=== PATIENT | female | born 1950 | race Caucasian/White ===

== ENCOUNTER 2025-08-06 19:50 | Inpatient (IN) | payer MEDICARE, MEDICAID, SELFPAY ==
--- NOTE | 2025-08-06 19:51 | EDNOTE_ITS ---
Nausea/Vomit./Diarrhea-RME/HPI General Chief complaint: Abdominal Pain Stated complaint: WEAKNESS Arrival date/time: 08/06/25 19:50 RME / HPI RME / HPI Narrative: See [facility] for Dr. Rosario's HPI documentation. Related Data Home Medications ?Medication ?Instructions ?Recorded ?Confirmed No Known Home Medications 04/02/2007/24 Allergies Allergy/AdvReac Type Severity Reaction Status Date / Time No Known Allergies Allergy Verified 04/02/20 23:23 Review of Systems Review of Systems Systems Reviewed: All systems reviewed, normal except as documented Past Medical History Past Medical History CARDIAC: Negative Cardiac Disorders or Congestive Heart Failure RESPIRATORY: Negative Chronic Obstructive Pulmonary Disease (COPD) or Asthma GENITOURINARY: Negative Renal Disease ENDOCRINE: Negative Diabetes Mellitus Type 1 or Diabetes Mellitus Type 2 HEMATOLOGIC: Negative Sickle Cell Disease ED Exam Narrative Physical exam: See [facility] for Dr. Rosario's physical exam documentation. Course Quality Measures none Orders Category Date Time Status Bedside COVID-19 Antigen Test NOW Care 08/06/25 19:56 Active COVID-19 Screening Questionnaire NOW Care 08/06/25 21:50 Active Decision to Admit X1 Care 08/06/25 21:50 Completed EKG (ED ONLY) *Do not use* NOW Care 08/06/25 19:57 Completed Miscellaneous Nursing Order NOW Care 08/06/25 23:23 Active Saline [Insert IV] NOW Care 08/06/25 19:56 Active Straight [In and Out Catheter] X1 Care 08/06/25 19:56 Active EKG (ED Only) Stat Exams 08/06/25 19:57 Draft XR chest 1V portable Stat Exams 08/06/25 19:57 Completed ABG [Arterial Blood Gas] Stat Lab 08/06/25 21:01 Completed Alcohol, Blood Medical Stat Lab 08/06/25 20:28 Completed Ammonia Stat Lab 08/06/25 20:28 Completed Amylase Stat Lab 08/06/25 20:28 Completed BNP [B-Type Natriuretic Peptide] Stat Lab 08/06/25 20:28 Completed Beta Hydroxybutyrate Stat Lab 08/06/25 20:28 Completed Bilirubin,Direct Stat Lab 08/06/25 20:28 Completed Blood Culture (Lab) Stat Lab 08/06/25 20:28 Received CBC Stat Lab 08/06/25 20:28 Completed CMP [Comprehensive Metabolic Panel] Stat Lab 08/06/25 20:28 Completed CRP [C-Reactive Protein] Stat Lab 08/06/25 20:28 Completed Drug Screen,Urine Stat Lab 08/06/25 20:18 Completed ESR [Sed Rate (ESR)] Stat Lab 08/06/25 20:28 Completed Hemoglobin A1C [Glycohemoglobin w (eAG)] Stat Lab 08/06/25 20:28 Completed Influenza A & B Rapid Panel Stat Lab 08/06/25 19:56 Ordered Lactate (Lactic Acid) Stat Lab 08/06/25 20:28 Completed Lipase Stat Lab 08/06/25 20:28 Completed Magnesium Stat Lab 08/06/25 20:28 Completed Procalcitonin Stat Lab 08/06/25 20:28 Completed TSH [Thyroid Stimulating Hormone] Stat Lab 08/06/25 20:28 Completed Troponin I Stat Lab 08/06/25 20:28 Completed UA, C/S IF [Urinalysis, C/S if Indicated] Stat Lab 08/06/25 20:18 Completed Urine Culture Stat Lab 08/06/25 20:18 Received Insulin Regular Med 08/06/25 19:56 Discontinued 10 unit IV X1 ONE Ondansetron Inj [Zofran Inj] Med 08/06/25 19:56 Discontinued 4 mg IVP X1 ONE Ringers Lactated 1000 ml [Lactated Ringers] 1,000 ml Med 08/06/25 21:46 Discontinued IV 1,000 mls/hr Sodium Chloride 0.9% 1000 ml [Ns] 1,000 ml Med 08/06/25 19:56 Discontinued IV 999 mls/hr cefTRIAXone/D5w 1gm IV premix [Rocephin/D5w 1gm IV Med 08/07/25 21:00 Active premix] 1 gm in 50 ml IV QDAY cefTRIAXone/D5w 1gm IV premix [Rocephin/D5w 1gm IV Med 08/06/25 21:02 Discontinued premix] 1 gm in 50 ml IV X1 Vital Signs Vital signs: Vital Signs Temperature 98.9 F 08/06/25 20:00 Pulse Rate 100 08/06/25 20:00 Respiratory Rate 18 08/06/25 20:00 Blood Pressure 189/104 H 08/06/25 20:00 Pulse Oximetry (%) 98 08/06/25 20:00 Oxygen Delivery Method Room Air 08/06/25 20:00 Nausea/Vomiting/Diarrhea MDM Narrative MDM Narrative:: This section includes all my notes and documentations, including HPI, PE, and ED course. Teto Rosario MD HPI: 75-year-old female here reporting several days of fatigue and malaise and vomiting and anorexia. Reports she doesn't have diabetes or other medical problems. No current medications. No other complaints. ROS: All negative except as documented in HPI. Physical Exam: General:? Alert and oriented.? Eyes:? Conjunctivae and lids clear.? EOMI.? PERRL. ENT:? No nasal congestion. Neck:? Supple.? Heart:? RRR.? Lungs:? No respiratory distress.? Decreased air movement.? No severe rhonchi, wheezing, rales.?? Abdomen:? Soft and nontender.? Normal bowel sounds.? No distension.? No rebound or guarding.?? Back:? No CVA tenderness.?? Legs:? No clubbing, cyanosis, edema.? Skin:? Warm and dry.?? Neuro:? Alert and oriented X 3.? Cranial Nerves II-XII grossly intact.? No peripheral motor deficits. I reviewed EMS notes. I reviewed all diagnostic test results. My interpretation of the EKG is sinus rhythm with no ST-T changes. My interpretation of the chest x-ray is NAD. Blood tests are remarkable for WBC 18.7, ESR 63, Creatinine 1.4, Glucose 623, Lactic Acid 2.7, CRP 11.6, Beta Hydroxybutyrate 2.8, Procalcitonin 1.59. ABG showed pH 7.38, pCO2 35, pHCO3 20. UA remarkable for 4+ glucose, 1+ ketone, positive nitrite, positive leukocyte esterase, 9 RBC, 28 WBC, and 2+ bacteria. UDS negative. At this point, diagnoses include: Hyperosmolar hyperglycemic state (HHS) UTI Treatment here included: Insulin 10 units IV Zofran 4 mg IV IV fluid Rocephin 1 g IV No significant improvement noted. I discussed the case with our hospitalist. About the presentation and exam and diagnostics and treatments here. And need of further care in the hospital. Will accept the patient. Teto Rosario MD Patient data External records reviewed:: [facility] previous records (Per chart review, patient was seen here on 04/03/20 for Diabetic ketoacidosis, Sepsis due to pneumonia, New onset type 2 diabetes mellitus, Empyema of lung and was transferred to [facility].) and EMS form Clinical information provided by:: patient and EMS Social determinants that could affect healthcare access:: none Patient has the following chronic illnesses:: DM How is presenting disease/condition affected by chronic disease/condition?: caused by Evaluation data The following diagnostics were reviewed and interpreted by me:: lab results, radiology exam(s) and EKG tracing(s) (My interpretation of the EKG: NSR (96 bpm) with no ST-T changes. Teto Rosario MD) Lab and/or radiology exams considered but not ordered:: none Interpretation Summary: I reviewed all diagnostic test results. My interpretation of the EKG is sinus rhythm with no ST-T changes. My interpretation of the chest x-ray is NAD. Blood tests are remarkable for WBC 18.7, ESR 63, Creatinine 1.4, Glucose 623, Lactic Acid 2.7, CRP 11.6, Beta Hydroxybutyrate 2.8, Procalcitonin 1.59. ABG showed pH 7.38, pCO2 35, pHCO3 20. UA remarkable for 4+ glucose, 1+ ketone, positive nitrite, positive leukocyte esterase, 9 RBC, 28 WBC, and 2+ bacteria. UDS negative. Medications / Prescriptions Medications / Prescriptions considered but not ordered:: none Medication administrations:: Medication Administration History Acetaminophen (Acetaminophen 325 Mg Tablet) 650 mg PO Q6H PRN PRN Reason: Fever >100.4 Stop: 09/05/25 23:23 Acetaminophen (Acetaminophen 325 Mg Tablet) 650 mg PO Q6H PRN PRN Reason: PAIN SCALE 1-3 (mild Stop: 09/05/25 23:23 Dextrose (Dextrose 50%-Water Inj 50 Ml Syringe) 25 ml IV Q15MIN PRN PRN Reason: BG 50-70 responsive npo pt Stop: 09/05/25 23:23 Dextrose (Dextrose 50%-Water Inj 50 Ml Syringe) 50 ml IV Q15MIN PRN PRN Reason: BG <50 OR BG <70 & pt unresponsive Stop: 09/05/25 23:23 Enoxaparin Sodium (Enoxaparin Sod Inj 40 Mg/0.4 Ml Syringe) 40 mg SC QDAY GEREMIAS Stop: 08/21/25 08:59 Glucagon (Glucagon Inj 1 Mg Vial) 1 mg IM Q15MIN PRN PRN Reason: BG <70, and no IV access Ceftriaxone Sodium/Dextrose (Rocephin/D5w 1gm Iv Premix) 1 gm in 50 mls @ 100 mls/hr IV QDAY GEREMIAS Stop: 08/14/25 20:59 Lactated Ringer's (Lactated Ringers) 1,000 mls @ 999 mls/hr IV .Q1H1M ONE Stop: 08/07/25 04:33 Insulin Human Lispro (Insulin Lispro (Admelog) 1 Unit/0.01 Ml Unit) 0 unit SC Q6H GEREMIAS; Protocol Stop: 09/05/25 23:44 Last Admin: 08/07/25 01:21 Dose: Not Given Documented By: JOHN Non-Admin Reason: help per provider Comments: new x1 med ordered Ondansetron HCl (Ondansetron Inj 2 Mg/Ml Inj 2 Ml) 4 mg IVP Q6H PRN; Protocol PRN Reason: NAUSEA OR VOMITING Stop: 09/05/25 23:23 Sennosides (Senna Tablet) 1 tab PO QDAY PRN; Protocol PRN Reason: constipation Stop: 09/05/25 23:23 Discontinued Medications Sodium Chloride (Ns) 1,000 mls @ 999 mls/hr IV .Q1H1M ONE Stop: 08/06/25 20:56 Last Infusion: 08/06/25 22:00 Dose: Infused Documented By: Admin: 08/06/25 20:44 Dose: 999 mls/hr Documented By: MÓNICA Ceftriaxone Sodium/Dextrose (Rocephin/D5w 1gm Iv Premix) 1 gm in 50 mls @ 100 mls/hr IV X1 ONE Stop: 08/06/25 21:31 Last Infusion: 08/06/25 22:45 Dose: Infused Documented By: Admin: 08/06/25 22:03 Dose: 100 mls/hr Documented By: MÓNICA Lactated Ringer's (Lactated Ringers) 1,000 mls @ 1,000 mls/hr IV .Q1H ONE Stop: 08/06/25 22:45 Last Admin: 08/06/25 22:21 Dose: 1,000 mls/hr Documented By: MÓNICA Lactated Ringer's (Lactated Ringers) 1,000 mls @ 999 mls/hr IV .Q1H1M ONE Stop: 08/07/25 00:35 Last Admin: 08/07/25 01:05 Dose: 999 mls/hr Documented By: JOHN Lactated Ringer's (Lactated Ringers) 1,000 mls @ 999 mls/hr IV .Q1H1M ONE Stop: 08/07/25 00:35 Last Admin: 08/07/25 01:06 Dose: 999 mls/hr Documented By: JOHN Potassium Chloride (Kcl Ivpb) 10 meq in 100 mls @ 100 mls/hr IV Q1H GEREMIAS Stop: 08/07/25 02:01 Last Admin: 08/07/25 02:21 Dose: 100 mls/hr Documented By: Infusion: 08/07/25 02:06 Dose: Infused Documented By: Admin: 08/07/25 01:06 Dose: 100 mls/hr Documented By: JOHN Insulin Degludec (Insulin Degludec 5 Unit/0.05 Ml (Per 5 Units)) 20 unit SC X1 ONE Stop: 08/07/25 00:09 Last Admin: 08/07/25 01:05 Dose: 20 unit Documented By: JOHN Co-signed By: KEIRY Insulin Human Lispro (Insulin Lispro (Admelog) 1 Unit/0.01 Ml Unit) 0 unit SC ACHS GEREMIAS; Protocol Stop: 09/06/25 07:29 Insulin Human Lispro (Insulin Lispro (Admelog) 1 Unit/0.01 Ml Unit) 0 unit SC Q6H GEREMIAS; Protocol Stop: 09/05/25 23:44 Last Admin: 08/07/25 02:32 Dose: Not Given Documented By: JOHN Non-Admin Reason: Discontinued Insulin Human Regular (Insulin Hum Regular 1 Unit/0.01 Ml (Per Unit)) 10 unit IV X1 ONE Stop: 08/06/25 19:57 Last Admin: 08/06/25 20:47 Dose: 10 unit Documented By: MÓNICA Co-signed By: Ondansetron HCl (Ondansetron Inj 2 Mg/Ml Inj 2 Ml) 4 mg IVP X1 ONE; Protocol Stop: 08/06/25 19:57 Last Admin: 08/06/25 20:44 Dose: 4 mg Documented By: MÓNICA Treatment here from me included: Insulin 10 units IV Zofran 4 mg IV IV fluid Rocephin 1 g IV Consultations Consultation(s) initiated? (list below): Yes Consultation #1 (Physician, Specialty, Details): I discussed the case with our hospitalist. About the presentation and exam and diagnostics and treatments here. And need of further care in the hospital. Will accept the patient. Diagnosis Nausea Differential Diagnosis: gastroenteritis, drug-induced nausea and vomiting, dehydration and other (UTI, pneumonia, sepsis, DKA) Most likely diagnosis given after review of the tests above:: Hyperosmolar hyperglycemic state (HHS) UTI Admission Indicated Admission indicated?: indicated Explain why admission is indicated or not indicated:: Hyperosmolar hyperglycemic state (HHS) Admission Request Was there a request for admission?: Yes Admission Attestation Admission request attestation: Discussed case with Hospitalist service regarding admission. Discussed patients ED course, exam findings, labs, and radiology results. Agreed to accept the patient for admission. Disposition Plan Disposition Plan: Admit Discharge Plan Plan Patient Disposition: Admit Acute Care w/in Hospital Problem List Clinical Impression: Hyperosmolar hyperglycemic state (HHS), UTI (urinary tract infection)
--- NOTE | 2025-08-06 19:57 | XR_ITS ---
EXAMINATION: AP chest single view TECHNIQUE: AP portable upright chest single view August 06, 2025, 2048 hours, comparison April 02, 2020 INDICATIONS: Shortness of breath today. FINDINGS: Mild prominence left ventricle Ectatic thoracic aorta. Moderate vascular congestion. Suspicious for early septal edema at the lung bases No lobar pneumonia IMPRESSION: Suspicious for early heart failure
--- NOTE | 2025-08-06 19:57 | EKG_ITS ---
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
[2025-08-06 20:00] VITALS: BP 189/104; PULSE 100; RESP 18; TEMP 37.2; O2SAT 98
[2025-08-06 20:23] LABS: Collection Type, Urine Clean Catch
[2025-08-06 20:24] VITALS: BP 176/90; PULSE 108; PULSE 95; RESP 15; O2SAT 99; BMI 28.4
[2025-08-06 20:32] VITALS: BP 176/90; PULSE 96; RESP 14; TEMP 36.4; O2SAT 96
[2025-08-06 20:36] LABS: Bacteria,Urine 2+; Bilirubin,Urine Negative (Negative); Blood,Urine 2+ (Negative); Clarity,Urine Clear (Clear/Hazy); Color,Urine Lt-Yellow (Lt Yel-Yel); Glucose, Urine 4+ (Negative); Ketones,Urine 1+ (Negative); Leukocyte Esterase,Urine Positive (Negative); Nitrite,Urine Positive (Negative); PH,Urine 6.0 (5.0-7.0); Protein,Urine 1+ (Neg - Trace); RBC,Urine 9 /hpf (0-3); Specific Gravity,Urine 1.025 (1.001-1.035); Squamous Epithelial Cell,Urine 1 /hpf (0-5); Urobilinogen,Urine Negative mg/dL (0.0-1.0); WBC,Urine 28 /hpf (0-5)
[2025-08-06 20:39] LABS: Amphetamine/Methamp Scrn,U Negative (Negative); Barbiturate Screen,Urine Negative (Negative); Benzodiazepines Screen,Urine Negative (Negative); Benzoylecgonine Screen, Ur Negative (Negative); Fentanyl Screen,Urine Negative (Negative); Opiate Screen,Urine Negative (Negative); THC Screen,Urine Negative (Negative)
[2025-08-06 20:40] LABS: Culture Indicated,Urine Yes
[2025-08-06] MEDS: ONDANSETRON INJ 2 MG/ML INJ 2 ML 4 MG IVP (20:44)
[2025-08-06] MEDS: SODIUM CHLORIDE 0.9% 1000 ML 1,000 ML 999 ML IV (20:44)
[2025-08-06] MEDS: INSULIN HUM REGULAR 1 UNIT/0.01 ML (PER UNIT) 10 UNIT IV (20:47)
[2025-08-06 20:50] LABS: Lactate (Lactic Acid) 2.7 mMol/L (0.4-2.0)
[2025-08-06 21:00] VITALS: BP 155/84; PULSE 95; RESP 22; O2SAT 93
[2025-08-06 21:00] LABS: Beta Hydroxybutyrate 2.8 mmol/L (<0.6)
[2025-08-06 21:06] LABS: Base Excess -4 (-3-3); HCO3 20 mEq/L (20-26); Inspired Oxygen, FIO2 21 %; O2 Saturation 93 % (91-98); PCO2 35 mmHg (32.0-48.0); PO2 66 mmHg (83-108); pH, Arterial 7.38 (7.35-7.45)
[2025-08-06 21:07] LABS: Allen Test Performed/OK; Puncture Site Right Radial
[2025-08-06 21:08] LABS: Basophils # (Auto) 0.1 Thou/mm3 (0.0-0.2); Basophils % (Auto) 0 % (0-2.5); Eosinophils # (Auto) 0.0 Thou/mm3 (0.0-0.5); Eosinophils % (Auto) 0 % (0-10); Hematocrit 36.5 % (36.0-46.0); Hemoglobin 12.7 g/dL (12.0-16.0); Immature Granulocytes Auto 0.08 Thou/mm3 (0.00-0.00); Lymphocytes # (Auto) 1.0 Thou/mm3 (1.0-4.8); Lymphocytes % (Auto) 5 % (10-50); Mean Corpuscular HGB Conc 34.8 g/dl (31.0-37.0); Mean Corpuscular Hemoglobin 32.6 pg (25.0-35.0); Mean Corpuscular Volume 94 fL (80-100); Monocytes # (Auto) 1.7 Thou/mm3 (0.0-0.8); Monocytes % (Auto) 9 % (0-12); Neutrophils # (Auto) 15.9 Thou/mm3 (1.8-7.7); Neutrophils % (Auto) 85 % (37-80); Nucleated Red Blood Cell # 0.00 Thou/mm3 (0.00-0.00); Nucleated Red Blood Cell % 0 /100 WBC (0); Platelet Count 270 Thou/mm3 (140-440); RDW Standard Deviation 41.3 fL (36.4-46.3); Red Blood Count 3.90 Miln/mm3 (4.00-5.20); White Blood Count 18.7 Thou/mm3 (3.6-11.0)
[2025-08-06 21:15] LABS: B-Type Natriuretic Peptide 47 pg/mL (0-100)
[2025-08-06 21:16] LABS: Ammonia < 10 uMol/L (11-32)
[2025-08-06 21:22] LABS: Sed Rate (ESR) 63 mm/hr (0-30)
[2025-08-06 21:28] LABS: Alanine Aminotransferase 20 U/L (10-49); Albumin, Serum 4.6 gm/dL (3.4-4.8); Albumin/Globulin Ratio 1.6 (1.2-2.2); Alcohol, Blood Medical < 3.0 mg/dL (0-10.0); Alkaline Phosphatase 78 U/L (46-116); Amylase 35 U/L (30-118); Anion Gap 16 (7-16); Aspartate Amino Transferase 26 U/L (0-34); BUN/Creatinine Ratio 10 Ratio (12-20); Bilirubin,Direct 0.1 mg/dL (0.0-0.3); Bilirubin,Total 0.5 mg/dL (0.3-1.2); Blood Urea Nitrogen 14 mg/dL (9-23); C-Reactive Protein 11.6 mg/dL (0.0-0.9); Calcium 9.2 mg/dL (8.3-10.6); Calcium (Corrected) 9.2 mg/dL (8.5-10.1); Carbon Dioxide 19.8 mMol/L (20.0-31.0); Chloride 98 mMol/L (98-107); Creatinine (Component) 1.4 mg/dL (0.6-1.3); Estimated Creatinine Clearance 31.0 mL/min (>60); Globulin 2.9 gm/dL (2.3-3.5); Lipase 29 U/L (12-53); Magnesium 2.0 mg/dL (1.6-2.6); Osmolality,Calculated 297 (275-295); Potassium 3.6 mMol/L (3.4-5.1); Procalcitonin 1.59 ng/ml (0.0-0.49); Sodium 134 mMol/L (136-145); Thyroid Stimulating Hormone 4.51 uIU/mL (0.55-4.78); Total Protein 7.5 gm/dL (5.7-8.2); Troponin I < 0.020 ng/mL (0.0-0.045); eGFR 39 See Note
[2025-08-06 21:30] LABS: Glucose 623 mg/dL (74-106)
[2025-08-06 21:37] LABS: Glucose Estimated Average 335 mg/dL (80-131); Hemoglobin A1C 13.3 % Hgb (4.8-6.0)
[2025-08-06 22:00] VITALS: BP 137/75; PULSE 88; RESP 17; O2SAT 95
[2025-08-06] MEDS: cefTRIAXone/D5w 1gm IV premix 1 GM/50 ML BAG IV (22:03)
[2025-08-06] MEDS: RINGERS LACTATED 1000 ML 1,000 ML IV (22:21)
[2025-08-06 23:11] VITALS: O2SAT 96
--- NOTE | 2025-08-06 23:37 | ESHP_ITS ---
<Statement entered by Juanjo Brown MD - 08/08/25 06:01> I have discussed and was present for the essential components of the history, physical examination, diagnosis, and treatment plan with the resident. I agree with the patient's care as documented by the resident and amended herein by me. Juanjo Brown MD FACP. Documentation for date of: 08/06/25 HPI History of Present Illness Chief complaint: Hyperglycemia History of present illness: 75-year-old female past medical history of hypertension, diabetes does not take any current medications who presented to the ED due to generalized weakness. Patient states that she has been having many falls since about 3 months and associated nonbilious nonbloody nausea vomiting at least 3 episodes 1 witnessed here in the ER. She also endorses some dizziness at the time of my evaluation. She states that a few years ago she was admitted for DKA previously. Patient also endorsed some suprapubic tenderness and found to have UTI on UA. ED workup was done patient was found to not be in DKA but rather in hyperglycemic state. Patient will be admitted for management to telemetry hyperglycemia. ED course: BP 189/104, HR 100, RR 18, saturating 98% on room air, Labs show leukocytosis, ESR 63, ABG shows pH 7.38, bicarb 19.8, creatinine 1.4, GFR 39, glucose 623, A1c 13.3, lactic acid 2.7, CRP 11.6, BHB 2.8, procalcitonin 1.59, urinalysis shows UTI with +1 ketones, UDS is negative. In the ED patient received 10 units of IV regular insulin, 2 L of IV fluids as well as Rocephin and Zofran. PMHx: As above SX Hx: History of VATS for loculated empyema Social Hx: Denies cigarette use, social alcohol use, denies illicit substances including THC FH X: Unknown Review of Systems Review of Systems Systems Reviewed: All systems reviewed, normal except as documented Exam Vital Signs Temp Pulse Resp BP Pulse Ox O2 Del Method 97.6 F 88 17 137/75 H 95 Room Air 08/06/25 20:32 08/06/25 22:00 08/06/25 22:00 08/06/25 22:00 08/06/25 22:00 08/06/25 20:32 Narrative Exam Physical Exam GENERAL: NAD, AAOx3, vomitus around face, hair and gown HEENT: Moist mucosa. Eyes open, symmetrical, & clear CARDIO: Heart RRR, no obvious murmurs PULM: No noted coughing/dyspnea CTA B/L, no R/W/R GI: Abdomen soft, nondistended, no pain on palpation. BSx4 SKIN/MSK/EXT: No wounds/rashes/edema/amputations, no pain on palpation. Pedal pulses present B/L NEURO: AAOx3, no focal neuro deficits, able to move all 4 extremities Results: Labs 08/06/25 20:28 08/06/25 20:28 Labs: Short CBC 08/06/25 Range/Units 20:28 WBC 18.7 H (3.6-11.0) Thou/mm3 Hgb 12.7 (12.0-16.0) g/dL Hct 36.5 (36.0-46.0) % Plt Count 270 (140-440) Thou/mm3 BMP 08/06/25 20:28 Sodium 134 L Potassium 3.6 Chloride 98 Carbon Dioxide 19.8 L BUN 14 Creatinine 1.4 H Glucose 623 H* Calcium 9.2 Cardiac Enzymes 08/06/25 Range/Units 20:28 Troponin I < 0.020 (0.0-0.045) ng/mL Liver Function 08/06/25 Range/Units 20:28 Total Bilirubin 0.5 (0.3-1.2) mg/dL Direct Bilirubin 0.1 (0.0-0.3) mg/dL AST 26 (0-34) U/L ALT 20 (10-49) U/L Alkaline Phosphatase 78 (46-116) U/L Albumin 4.6 (3.4-4.8) gm/dL Urine 08/06/25 Range/Units 20:18 Urine Color Lt-Yellow (Lt Yel-Yel) Urine Clarity Clear (Clear/Hazy) Urine pH 6.0 (5.0-7.0) Ur Specific [place] 1.025 (1.001-1.035) Urine Protein 1+ A (Neg - Trace) Urine Glucose (UA) 4+ A (Negative) ABG Interpretation ABG results: 08/06/25 21:01 ABG pH 7.38 ABG pCO2 35 ABG pO2 66 L ABG HCO3 20 ABG O2 Saturation 93 ABG Base Excess -4 L Quality Measures Quality Measures none Advance care planning discussed with:: patient Medications Home Medications and Allergies Home Medications ?Medication ?Instructions ?Recorded ?Confirmed ?Type No Known Home Medications 04/02/2002/16 History Allergies Allergy/AdvReac Type Severity Reaction Status Date / Time No Known Allergies Allergy Verified 04/02/20 23:23 Visit Medications Acetaminophen (Acetaminophen 325 Mg Tablet) 650 mg PO Q6H PRN PRN Reason: Fever >100.4 Stop: 09/05/25 23:23 Acetaminophen (Acetaminophen 325 Mg Tablet) 650 mg PO Q6H PRN PRN Reason: PAIN SCALE 1-3 (mild Stop: 09/05/25 23:23 Dextrose (Dextrose 50%-Water Inj 50 Ml Syringe) 25 ml IV Q15MIN PRN PRN Reason: BG 50-70 responsive npo pt Stop: 09/05/25 23:23 Dextrose (Dextrose 50%-Water Inj 50 Ml Syringe) 50 ml IV Q15MIN PRN PRN Reason: BG <50 OR BG <70 & pt unresponsive Stop: 09/05/25 23:23 Enoxaparin Sodium (Enoxaparin Sod Inj 40 Mg/0.4 Ml Syringe) 40 mg SC QDAY GEREMIAS Stop: 08/21/25 08:59 Glucagon (Glucagon Inj 1 Mg Vial) 1 mg IM Q15MIN PRN PRN Reason: BG <70, and no IV access Ceftriaxone Sodium/Dextrose (Rocephin/D5w 1gm Iv Premix) 1 gm in 50 mls @ 100 mls/hr IV QDAY GEREMIAS Stop: 08/13/25 23:23 Lactated Ringer's (Lactated Ringers) 1,000 mls @ 999 mls/hr IV .Q1H1M ONE Stop: 08/07/25 00:35 Lactated Ringer's (Lactated Ringers) 1,000 mls @ 999 mls/hr IV .Q1H1M ONE Stop: 08/07/25 00:35 Ondansetron HCl (Ondansetron Inj 2 Mg/Ml Inj 2 Ml) 4 mg IVP Q6H PRN; Protocol PRN Reason: NAUSEA OR VOMITING Stop: 09/05/25 23:23 Sennosides (Senna Tablet) 1 tab PO QDAY PRN; Protocol PRN Reason: constipation Stop: 09/05/25 23:23 Discontinued Medications Sodium Chloride (Ns) 1,000 mls @ 999 mls/hr IV .Q1H1M ONE Stop: 08/06/25 20:56 Last Infusion: 08/06/25 22:00 Dose: Infused Ceftriaxone Sodium/Dextrose (Rocephin/D5w 1gm Iv Premix) 1 gm in 50 mls @ 100 mls/hr IV X1 ONE Stop: 08/06/25 21:31 Last Admin: 08/06/25 22:03 Dose: 100 mls/hr Lactated Ringer's (Lactated Ringers) 1,000 mls @ 1,000 mls/hr IV .Q1H ONE Stop: 08/06/25 22:45 Last Admin: 08/06/25 22:21 Dose: 1,000 mls/hr Insulin Human Lispro (Insulin Lispro (Admelog) 1 Unit/0.01 Ml Unit) 0 unit SC ACHS GEREMIAS; Protocol Stop: 09/06/25 07:29 Insulin Human Regular (Insulin Hum Regular 1 Unit/0.01 Ml (Per Unit)) 10 unit IV X1 ONE Stop: 08/06/25 19:57 Last Admin: 08/06/25 20:47 Dose: 10 unit Ondansetron HCl (Ondansetron Inj 2 Mg/Ml Inj 2 Ml) 4 mg IVP X1 ONE; Protocol Stop: 08/06/25 19:57 Last Admin: 08/06/25 20:44 Dose: 4 mg Assessment & Plan Plan 75-year-old female with past medical history as stated above who presented to the ED due to weakness. Patient will be admitted for hyperglycemic state. #Hyperglycemic state #Diabetes melitis type II #Lactic acidosis Patient is noncompliant with any of her medications she is a diabetic with hypertension and does not take any type of medications as she says she does not need them. She presented with weakness dizziness nausea vomiting nonbloody, nonbilious Initial blood sugar was 623, received 10 units of regular insulin and 2 L of IV fluids and blood sugar improved to 483 A1c 13.3, Beta hydroxybutyrate 2.8, ABG shows pH 7.38, CO2 35, had of HCO3 19.8 on renal panel ? degludec 20units x1 ? Q2 hour blood sugar checksx2 ? Renal panel every 3 hours ? IV fluids ? Keep K >4, Mg>2 ? Zofran for nausea and vomiting ? Insulin sliding scale #UTI Evidenced by urinalysis, she states she had mild suprapubic tenderness but resolved after administering ? Follow-up urine cultures ? Rocephin 1 g daily #Acute Kidney injury likely pre-renal in setting of dehydration ? on IVF ? Avoid nephrotoxins ? Renally dose medications #Hypertension Patient is noncompliant with any of her medications, currently normotensive ? Consider starting BP meds if BP increases Case discussed with my attending Dr. Kevin Saha MD PGY-2 Disclaimer: Despite multiple revisions, due to the dictation software being used, the document bellow may not be free of grammatical errors including phonetic/typographic errors. However, this does not deter from our commitment to providing health care in the patient's best interest in mind.
[2025-08-06 23:46] LABS: Reflex Lactate? Y
[2025-08-07] VITALS (17 sets, daily range): BP systolic 109–151; BP diastolic 67–87; PULSE 78–143; RESP 14–94; TEMP 35.9–36.4; O2SAT 87–99; BMI 27.5; BMI 27.6
[2025-08-07 00:21] LABS: Lactate (Lactic Acid) 2.8 mMol/L (0.4-2.0)
[2025-08-07 00:50] LABS: Albumin, Serum 3.9 gm/dL (3.4-4.8); Anion Gap 14 (7-16); BUN/Creatinine Ratio 12 Ratio (12-20); Blood Urea Nitrogen 14 mg/dL (9-23); Calcium 8.7 mg/dL (8.3-10.6); Calcium (Corrected) 8.8 mg/dL (8.5-10.1); Carbon Dioxide 23.0 mMol/L (20.0-31.0); Chloride 102 mMol/L (98-107); Creatinine (Component) 1.2 mg/dL (0.6-1.3); Estimated Creatinine Clearance 36.1 mL/min (>60); Osmolality,Calculated 300 (275-295); Phosphorous 2.7 mg/dL (2.4-5.1); Potassium 3.7 mMol/L (3.4-5.1); Sodium 139 mMol/L (136-145); eGFR 47 See Note
[2025-08-07 00:54] LABS: Glucose 494 mg/dL (74-106)
[2025-08-07] MEDS: RINGERS LACTATED 1000 ML 1,000 ML 999 ML IV ×2 (01:05→01:06)
[2025-08-07] MEDS: INSULIN DEGLUDEC 5 UNIT/0.05 ML (PER 5 UNITS) 20 UNIT SC (01:05)
[2025-08-07] MEDS: POTASSIUM CHL 10 mEq IVPB 10 MEQ/100 ML BAG 100 MEQ IV ×2 (01:06→02:21)
--- NOTE | 2025-08-07 01:34 | PC.NURSE ---
provider kedar aware there is no diet order on pt, provider will put one in
--- NOTE | 2025-08-07 01:38 | PC.NURSE ---
purewick placed on pt
[2025-08-07 02:58] LABS: Albumin, Serum 3.9 gm/dL (3.4-4.8); Anion Gap 17 (7-16); BUN/Creatinine Ratio 10 Ratio (12-20); Blood Urea Nitrogen 12 mg/dL (9-23); Calcium 8.5 mg/dL (8.3-10.6); Calcium (Corrected) 8.6 mg/dL (8.5-10.1); Carbon Dioxide 21.0 mMol/L (20.0-31.0); Chloride 101 mMol/L (98-107); Creatinine (Component) 1.2 mg/dL (0.6-1.3); Estimated Creatinine Clearance 36.1 mL/min (>60); Osmolality,Calculated 299 (275-295); Phosphorous 3.4 mg/dL (2.4-5.1); Potassium 4.1 mMol/L (3.4-5.1); Sodium 139 mMol/L (136-145); eGFR 47 See Note
[2025-08-07 03:18] LABS: Reflex Lactate? Y
[2025-08-07 03:41] LABS: Glucose 492 mg/dL (74-106)
[2025-08-07 04:31] LABS: Lactic Acid, 3 HR 1.8 mMol/L (0.4-2.0)
[2025-08-07 04:35] LABS: Basophils # (Auto) 0.1 Thou/mm3 (0.0-0.2); Basophils % (Auto) 0 % (0-2.5); Eosinophils # (Auto) 0.0 Thou/mm3 (0.0-0.5); Eosinophils % (Auto) 0 % (0-10); Hematocrit 33.9 % (36.0-46.0); Hemoglobin 12.1 g/dL (12.0-16.0); Immature Granulocytes Auto 0.07 Thou/mm3 (0.00-0.00); Lymphocytes # (Auto) 1.3 Thou/mm3 (1.0-4.8); Lymphocytes % (Auto) 8 % (10-50); Mean Corpuscular HGB Conc 35.7 g/dl (31.0-37.0); Mean Corpuscular Hemoglobin 33.6 pg (25.0-35.0); Mean Corpuscular Volume 94 fL (80-100); Monocytes # (Auto) 0.8 Thou/mm3 (0.0-0.8); Monocytes % (Auto) 5 % (0-12); Neutrophils # (Auto) 13.7 Thou/mm3 (1.8-7.7); Neutrophils % (Auto) 86 % (37-80); Nucleated Red Blood Cell # 0.00 Thou/mm3 (0.00-0.00); Nucleated Red Blood Cell % 0 /100 WBC (0); Platelet Count 253 Thou/mm3 (140-440); RDW Standard Deviation 42.3 fL (36.4-46.3); Red Blood Count 3.60 Miln/mm3 (4.00-5.20); White Blood Count 15.9 Thou/mm3 (3.6-11.0)
--- NOTE | 2025-08-07 04:51 | PC.NURSE ---
provider Cicone aware pt lung sounds have crackles after 2 L bolus and pt o2 is 85-88%, placed pt on 2 L O2
[2025-08-07 05:04] LABS: Glucose Estimated Average 335 mg/dL (80-131); Hemoglobin A1C 13.3 % Hgb (4.8-6.0)
[2025-08-07 05:13] LABS: Albumin, Serum 4.1 gm/dL (3.4-4.8); Anion Gap 17 (7-16); BUN/Creatinine Ratio 11 Ratio (12-20); Blood Urea Nitrogen 12 mg/dL (9-23); Calcium 8.7 mg/dL (8.3-10.6); Calcium (Corrected) 8.7 mg/dL (8.5-10.1); Carbon Dioxide 21.2 mMol/L (20.0-31.0); Chloride 101 mMol/L (98-107); Creatinine (Component) 1.1 mg/dL (0.6-1.3); Estimated Creatinine Clearance 39.4 mL/min (>60); Magnesium 1.8 mg/dL (1.6-2.6); Osmolality,Calculated 298 (275-295); Phosphorous 3.6 mg/dL (2.4-5.1); Potassium 4.1 mMol/L (3.4-5.1); Sodium 139 mMol/L (136-145); eGFR 52 See Note
[2025-08-07 05:20] LABS: Glucose 468 mg/dL (74-106)
[2025-08-07] MEDS: INSULIN LISPRO (AdmeLOG) 1 UNIT/0.01 ML UNIT 10 UNIT SC (05:36)
[2025-08-07 05:48] LABS: Base Excess, Venous -3 (-3-3); O2 Saturation, Venous 65 % (96-97); PCO2, Venous 39 mmHg (36-56); PO2, Venous 35 mmHg (15-58); pH, Venous 7.36 (7.33-7.66)
--- NOTE | 2025-08-07 07:40 | XR_ITS ---
EXAMINATION: AP chest single view TECHNIQUE: AP portable semiupright chest single view Date and time: August 07, 2025, 0749 hours, comparison August 06, 2025 INDICATIONS: Rapid response, shortness of breath today FINDINGS: Prominent CHF Mild enlargement cardiac contour. Prominent vascular congestion with extensive perihilar edema Severe osteopenia IMPRESSION: Prominent CHF
[2025-08-07] MEDS: INSULIN LISPRO (AdmeLOG) 1 UNIT/0.01 ML UNIT 5 UNIT SC (07:52)
[2025-08-07] MEDS: INSULIN LISPRO (AdmeLOG) 1 UNIT/0.01 ML UNIT SC (07:53)
[2025-08-07] MEDS: BUMETANIDE INJ 0.25 MG/ML VIAL 4 ML 1 MG IVP ×2 (08:16→21:17)
[2025-08-07] MEDS: ENOXAPARIN SOD INJ 40 MG/0.4 ML SYRINGE SC (08:17)
[2025-08-07] MEDS: LEVALBUTEROL RT 1.25 MG/0.5 ML NEBU INH (08:21)
[2025-08-07 09:10] LABS: Base Excess, Venous -4 (-3-3); O2 Saturation, Venous 83 % (96-97); PCO2, Venous 43 mmHg (36-56); PO2, Venous 49 mmHg (15-58); pH, Venous 7.32 (7.33-7.66)
[2025-08-07 09:13] LABS: Lactate (Lactic Acid) 4.4 mMol/L (0.4-2.0)
[2025-08-07 09:15] LABS: Beta Hydroxybutyrate 0.6 mmol/L (<0.6)
[2025-08-07 09:40] LABS: Albumin, Serum 4.8 gm/dL (3.4-4.8); Anion Gap 17 (7-16); BUN/Creatinine Ratio 12 Ratio (12-20); Blood Urea Nitrogen 13 mg/dL (9-23); Calcium 9.8 mg/dL (8.3-10.6); Calcium (Corrected) 9.8 mg/dL (8.5-10.1); Carbon Dioxide 20.3 mMol/L (20.0-31.0); Chloride 103 mMol/L (98-107); Creatinine (Component) 1.1 mg/dL (0.6-1.3); Estimated Creatinine Clearance 38.8 mL/min (>60); Glucose 284 mg/dL (74-106); Osmolality,Calculated 289 (275-295); Phosphorous 3.7 mg/dL (2.4-5.1); Potassium 3.5 mMol/L (3.4-5.1); Sodium 140 mMol/L (136-145); eGFR 52 See Note
--- NOTE | 2025-08-07 09:48 | ECHO_ITS ---
Transthoracic Echo Report Ht (in): 62 Wt (lb): 150 Exam Location: [facility] Status: Inpatient Plan Examiner: Randi Talavera Indications: Procedure Performed: BP: 122 / 76 HR: 98 MEASUREMENTS (Male / Female) Normal Values 2D ECHO LV Diastolic Diameter PLAX 3.1 cm 4.2 - 5.9 / 3.9 - 5.3 cm LV Systolic Diameter PLAX 2.1 cm IVS Diastolic Thickness 0.8 cm 0.6 - 1.0 / 0.6 - 0.9 cm LVPW Diastolic Thickness 1.0 cm 0.6 - 1.0 / 0.6 - 0.9 cm LV Relative Wall Thickness 0.6 LVOT Diameter 1.9 cm LA Volume Index 22.6 cm?/m? 16 - 28 cm?/m? Ascending Aorta Diameter 2.9 cm M-MODE AV Cusp Separation MM 0.9 cm DOPPLER AV Peak Velocity 154.0 cm/s AV Peak Gradient 9.5 mmHg AV Mean Gradient 6.0 mmHg AV Velocity Time Integral 29.5 cm LVOT Peak Velocity 106.0 cm/s LVOT Peak Gradient 4.5 mmHg LVOT Velocity Time Integral 18.1 cm LVOT Cardiac Index 2883.3 cm?/min?m? AV Area Cont Eq vti 1.7 cm? AV Area Cont Eq pk 2.0 cm? MV Area PHT 5.0 cm? Mitral E Point Velocity 52.1 cm/s Mitral A Point Velocity 73.7 cm/s Mitral E to A Ratio 0.7 LV E' Lateral Velocity 7.8 cm/s Mitral E to LV E' Lateral Ratio 6.7 LV E' Septal Velocity 9.1 cm/s Mitral E to LV E' Septal Ratio 5.7 TR Peak Velocity 271.0 cm/s TR Peak Gradient 29.4 mmHg PV Peak Velocity 68.3 cm/s PV Peak Gradient 1.9 mmHg FINDINGS Left Ventricle Normal left ventricular size, wall thickness, systolic function with no obvious regional wall motion abnormalities. There is grade I diastolic dysfunction of the left ventricle (impaired relaxation pattern). . The ejection fraction is visually estimated at 50-55%. Right Ventricle The right ventricle is normal in size and systolic function. The estimated right ventricular systolic pressure, 33 mmHg with RAP 3 Left Atrium The left atrium is normal by two-dimensional, color flow and Doppler imaging with no structural abnormalities, no thrombus formation present. Right Atrium The right atrium is normal by two-dimensional imaging, color flow and Doppler imaging with no structural abnormalities, no thrombus formation present. Atrial Septum The interatrial septum appears normal with no evidence of a shunt. Aorta The aorta is normal by two-dimensional, color flow and Doppler interrogation. Mitral Valve Mild thickening of the mitral valve leaflets. Thickening vs veggie on the anterior leaflet.mild mitral regurgitation. Aortic Valve Aortic valve sclerosis without stenosis Tricuspid Valve The tricuspid valve is normal by two-dimensional, color flow and Doppler interrogation. There is mild tricuspid valve regurgitation. Pulmonic Valve The pulmonic valve is not well visualized. There is no significant pulmonic valve regurgitation. Vessels The pulmonary artery appears normal. The inferior vena cava pulmonary and hepatic veins appear normal. Pericardium The pericardium is normal by two-dimensional imaging. There is no significant pericardial effusion. CONCLUSIONS Indication: SOB Normal left ventricular size and function. Approximate ejection fraction is 50- 55%. Grade I diastolic dysfunction Normal right ventricular size and function. RVSP 33 mmHg with RAP 3. Mild pulmonary HTN Mild aortic valve sclerosis without stenosis. Mild thickening of the mitral valve leaflets. Mild mitral and tricuspid regurgitation noted. No pericardial effusion. Kian Dickson (Electronically Signed) Final Date: 08 August 2025 01:23
--- NOTE | 2025-08-07 10:30 | EVENTNT_ITS ---
Documentation for date of: 08/07/25 Event Note Event Note: Rapid response was called this morning around 7:30 AM due to patient being hypoxic, dyspneic, and more agitated. Patient's blood pressure goal also not be read and was significantly elevated once it was taken. Patient's O2 sats were in the 86-88 consistently on nasal cannula and she was dyspneic on physical assessment and her lungs had crackles bilaterally. Patient's heart rate was also elevated. Given that the patient was admitted for possible HHS gave a small dose of Solu-Medrol along with 5 extra units of insulin lispro on top of the sliding scale. Also gave levalbuterol instead of DuoNeb given tachycardia. Chest x-ray and ABG were ordered and showed significant pulmonary congestion therefore 1 mg of Bumex was given. Patient was placed on high flow nasal cannula with improvement of hypoxia. At the end of the rapid patient was saturating well in the 90s. Case disclosed with Attending Dr. Eleazar Cruz PGY2 Disclaimer: Even though this this note was dictated by speech recognition and even though it was carefully revised there may still be minor errors in soaking pit operator due to voice recognition software.
[2025-08-07 11:00] LABS: B-Type Natriuretic Peptide 389 pg/mL (0-100)
[2025-08-07 11:22] LABS: Lactate (Lactic Acid) 4.6 mMol/L (0.4-2.0)
[2025-08-07 12:07] LABS: Reflex Lactate? Y
[2025-08-07] MEDS: BUMETANIDE INJ 0.25 MG/ML VIAL 4 ML 0.5 MG IVP (12:47)
[2025-08-07 13:27] LABS: Albumin, Serum 4.1 gm/dL (3.4-4.8); Anion Gap 18 (7-16); BUN/Creatinine Ratio 10 Ratio (12-20); Blood Urea Nitrogen 12 mg/dL (9-23); Calcium 9.2 mg/dL (8.3-10.6); Calcium (Corrected) 9.2 mg/dL (8.5-10.1); Carbon Dioxide 22.9 mMol/L (20.0-31.0); Chloride 103 mMol/L (98-107); Creatine Kinase 214 U/L (34-171); Creatinine (Component) 1.2 mg/dL (0.6-1.3); Estimated Creatinine Clearance 35.6 mL/min (>60); Glucose 212 mg/dL (74-106); Osmolality,Calculated 292 (275-295); Phosphorous 1.9 mg/dL (2.4-5.1); Potassium 3.0 mMol/L (3.4-5.1); Sodium 144 mMol/L (136-145); eGFR 47 See Note
[2025-08-07 14:07] LABS: Reflex Lactate? Y
[2025-08-07 14:21] LABS: Lactate (Lactic Acid) 2.4 mMol/L (0.4-2.0)
[2025-08-07] MEDS: POT PHOS 15 mMol in NS 250 ML 15 MMOL/250 ML BAG 62.5 MMOL IV ×2 (15:08→20:56)
[2025-08-07 17:15] LABS: Reflex Lactate? Y
--- NOTE | 2025-08-07 17:46 | ESPR_ITS ---
<Statement entered by Ty Cruz MD - 08/07/25 20:21> Patient was seen and evaluated at bedside this morning. Had a RR in the morning do to hypoxia and dyspnea. Found to have pulmonary edema likely 2/2 IVF in the setting of possible underlying CHF. Bedside echo showed possible reduced EF. Patient was also showing sign of hypoglycemia in the afternoon when BG was in the 240s, suspect that patient typically runs in the high 350s therefore will slowly increased insulin to decrease BG. For now no ISS and will keep BG above 300. Will do Bumex 1mg BID and fluid restrictions for now. Will also keep degludec 20U HS. Echo ordered. I have reviewed the note and agree with the resident's assessment & plan with exceptions as below. I have personally reviewed labs, imaging, home meds/prior records, examined the patient, formulated and discussed management plan with my attending Ty Curz PGY2 Disclaimer: Even though this this note was dictated by speech recognition and even though it was carefully revised there may still be minor errors in account developer due to voice recognition software. Documentation for date of: 08/07/25 Subjective Subjective Interval history: Patient was admitted overnight. In the a.m., rapid response was called for hypoxemia, agitation and unable to get blood pressure reading. Patient was given levalbuterol, Bumex, Solu-Medrol and 5 units of insulin with improvement. Chest x-ray showed significant congestion. Patient is alert and oriented x [address] Is currently feeling very agitated and does not endorse any pain. States that she does feel short of breath and that she needs to urinate. Patient is adamant that she does not want BiPAP. Labs and vitals reviewed. WBC 15.9, hemoglobin 12.1, sodium 136, potassium 4.1, creatinine 1.1. Anion gap 17, A1c 13.3 lactic acid initially 2.8 downtrended to 1.8 then 4.4 then 4.6 now 2.8. BNP 300s. Start degludec 20 units daily. Hold sliding scale for now as patient experienced diaphoresis, dizziness and agitation with glucose at 240sfollowing rapid response. Start Bumex 1 mg daily as well as 1.8 L fluid restriction. Continue Rocephin for GNR UTI. Exam Vital Signs Temp Pulse Resp BP Pulse Ox O2 Del Method O2 Flow Rate 97.6 F 87 18 109/67 95 High Flow Nasal Cannula 30 08/07/25 16:00 08/07/25 16:00 08/07/25 16:00 08/07/25 16:00 08/07/25 16:00 08/07/25 16:00 08/07/25 16:00 FiO2 60 08/07/25 16:00 Narrative Exam GENERAL: AOx2 (place and person), no acute distress, sitting up comfortably on high flow NC HEENT: NC/AT, mucous membranes dry, bilateral sclera anicteric CARDIOVASCULAR: tachycardic, regular rhythm, S1/S2 present, no murmurs appreciated PULMONARY: mild bilateral crackles at base, no wheezing appreciated ABDOMINAL: soft, non-tender, non-distended, no rebound/guarding, bowel sounds present EXTREMITIES: bilateral non-pitting edema up to calves SKIN: warm and dry, intact, no rashes NEURO: CN II-XII grossly intact, no focal deficits, alert, following commands Objective Labs 08/07/25 04:12 08/07/25 11:00 Labs: Laboratory Results - last 24 hr 08/06/25 08/06/25 08/06/25 20:18 20:28 21:01 WBC 18.7 H RBC 3.90 L Hgb 12.7 Hct 36.5 MCV 94 MCH 32.6 MCHC 34.8 RDW Std Deviation 41.3 Plt Count 270 Neut % (Auto) 85 H Lymph % (Auto) 5 L [place] % (Auto) 9 Eos % (Auto) 0 Baso % (Auto) 0 Neut # (Auto) 15.9 H Lymph # (Auto) 1.0 [place] # (Auto) 1.7 H Eos # (Auto) 0.0 Baso # (Auto) 0.1 Immature Gran # (Auto) 0.08 H Absolute Nucleated RBC 0.00 Immature Gran % 0 Nucleated RBC % 0 ESR 63 H Puncture Site Right Radial ABG pH 7.38 ABG pCO2 35 ABG pO2 66 L ABG HCO3 20 ABG O2 Saturation 93 ABG Base Excess -4 L VBG pH VBG pCO2 VBG pO2 VBG O2 Sat (Madalyn) VBG Base Excess FiO2 21 Sodium 134 L Potassium 3.6 Chloride 98 Carbon Dioxide 19.8 L Anion Gap 16 BUN 14 Creatinine 1.4 H Estim Creat Clear Calc 31.0 L eGFR 39 L BUN/Creatinine Ratio 10 L Glucose 623 H* Estimated Ave Glu mg/dL 335 H Hemoglobin A1c 13.3 H Calculated Osmolality 297 H Lactic Acid 2.7 H Calcium 9.2 Corrected Calcium 9.2 Phosphorus Magnesium 2.0 Total Bilirubin 0.5 Direct Bilirubin 0.1 AST 26 ALT 20 Alkaline Phosphatase 78 Ammonia < 10 L Total Creatine Kinase Troponin I < 0.020 C-Reactive Prot, Quant 11.6 H B-Natriuretic Peptide 47 Total Protein 7.5 Albumin 4.6 Globulin 2.9 Albumin/Globulin Ratio 1.6 Amylase 35 Lipase 29 Beta-Hydroxybutyrate/Acetoacetate 2.8 H Procalcitonin 1.59 H TSH 4.51 Ur Collection Type Clean Catch Urine Color Lt-Yellow Urine Clarity Clear Urine pH 6.0 Ur Specific [place] 1.025 Urine Protein 1+ A Urine Glucose (UA) 4+ A Urine Ketones 1+ A Urine Blood 2+ A Urine Nitrite Positive Urine Bilirubin Negative Urine Urobilinogen (Auto) Negative Ur Leukocyte Esterase Positive Urine RBC 9 H Urine WBC 28 H Ur Squamous Epith Cells 1 Urine Bacteria 2+ A Ur Culture Indicated? Yes Urine Opiates Screen Negative Urine Fentanyl Screen Negative Ur Barbiturates Screen Negative U Amphetamin/Meth Scrn Negative U Benzodiazepines Scrn Negative U Cocaine Metab Screen Negative U Marijuana (THC) Screen Negative Ethyl Alcohol < 3.0 08/07/25 08/07/25 08/07/25 00:07 02:10 04:12 WBC 15.9 H RBC 3.60 L Hgb 12.1 Hct 33.9 L MCV 94 MCH 33.6 MCHC 35.7 RDW Std Deviation 42.3 Plt Count 253 Neut % (Auto) 86 H Lymph % (Auto) 8 L [place] % (Auto) 5 Eos % (Auto) 0 Baso % (Auto) 0 Neut # (Auto) 13.7 H Lymph # (Auto) 1.3 [place] # (Auto) 0.8 Eos # (Auto) 0.0 Baso # (Auto) 0.1 Immature Gran # (Auto) 0.07 H Absolute Nucleated RBC 0.00 Immature Gran % 0 Nucleated RBC % 0 ESR Puncture Site ABG pH ABG pCO2 ABG pO2 ABG HCO3 ABG O2 Saturation ABG Base Excess VBG pH 7.36 VBG pCO2 39 VBG pO2 35 VBG O2 Sat (Madalyn) 65 L VBG Base Excess -3 FiO2 Sodium 139 139 139 Potassium 3.7 4.1 4.1 Chloride 102 101 101 Carbon Dioxide 23.0 21.0 21.2 Anion Gap 14 17 H 17 H BUN 14 12 12 Creatinine 1.2 1.2 1.1 Estim Creat Clear Calc 36.1 L 36.1 L 39.4 L eGFR 47 L 47 L 52 L BUN/Creatinine Ratio 12 10 L 11 L Glucose 494 H* D 492 H* 468 H* Estimated Ave Glu mg/dL 335 H Hemoglobin A1c 13.3 H Calculated Osmolality 300 H 299 H 298 H Lactic Acid 2.8 H 1.8 Calcium 8.7 8.5 8.7 Corrected Calcium 8.8 8.6 8.7 Phosphorus 2.7 3.4 3.6 Magnesium 1.8 Total Bilirubin Direct Bilirubin AST ALT Alkaline Phosphatase Ammonia Total Creatine Kinase Troponin I C-Reactive Prot, Quant B-Natriuretic Peptide Total Protein Albumin 3.9 D 3.9 4.1 Globulin Albumin/Globulin Ratio Amylase Lipase Beta-Hydroxybutyrate/Acetoacetate Procalcitonin TSH Ur Collection Type Urine Color Urine Clarity Urine pH Ur Specific [place] Urine Protein Urine Glucose (UA) Urine Ketones Urine Blood Urine Nitrite Urine Bilirubin Urine Urobilinogen (Auto) Ur Leukocyte Esterase Urine RBC Urine WBC Ur Squamous Epith Cells Urine Bacteria Ur Culture Indicated? Urine Opiates Screen Urine Fentanyl Screen Ur Barbiturates Screen U Amphetamin/Meth Scrn U Benzodiazepines Scrn U Cocaine Metab Screen U Marijuana (THC) Screen Ethyl Alcohol 08/07/25 08/07/25 08/07/25 08:35 11:00 14:03 WBC RBC Hgb Hct MCV MCH MCHC RDW Std Deviation Plt Count Neut % (Auto) Lymph % (Auto) [place] % (Auto) Eos % (Auto) Baso % (Auto) Neut # (Auto) Lymph # (Auto) [place] # (Auto) Eos # (Auto) Baso # (Auto) Immature Gran # (Auto) Absolute Nucleated RBC Immature Gran % Nucleated RBC % ESR Puncture Site ABG pH ABG pCO2 ABG pO2 ABG HCO3 ABG O2 Saturation ABG Base Excess VBG pH 7.32 L VBG pCO2 43 VBG pO2 49 VBG O2 Sat (Madalyn) 83 L VBG Base Excess -4 L FiO2 Sodium 140 144 Potassium 3.5 D 3.0 L D Chloride 103 103 Carbon Dioxide 20.3 22.9 Anion Gap 17 H 18 H BUN 13 12 Creatinine 1.1 1.2 Estim Creat Clear Calc 38.8 L 35.6 L eGFR 52 L 47 L BUN/Creatinine Ratio 12 10 L Glucose 284 H D [address] Glu mg/dL Hemoglobin A1c Calculated Osmolality 289 292 Lactic Acid 4.4 H* 4.6 H* 2.4 H Calcium 9.8 9.2 Corrected Calcium 9.8 9.2 Phosphorus 3.7 1.9 L Magnesium Total Bilirubin Direct Bilirubin AST ALT Alkaline Phosphatase Ammonia Total Creatine Kinase 214 H Troponin I C-Reactive Prot, Quant B-Natriuretic Peptide 389 H Total Protein Albumin 4.8 D 4.1 D Globulin Albumin/Globulin Ratio Amylase Lipase Beta-Hydroxybutyrate/Acetoacetate 0.6 H Procalcitonin TSH Ur Collection Type Urine Color Urine Clarity Urine pH Ur Specific [place] Urine Protein Urine Glucose (UA) Urine Ketones Urine Blood Urine Nitrite Urine Bilirubin Urine Urobilinogen (Auto) Ur Leukocyte Esterase Urine RBC Urine WBC Ur Squamous Epith Cells Urine Bacteria Ur Culture Indicated? Urine Opiates Screen Urine Fentanyl Screen Ur Barbiturates Screen U Amphetamin/Meth Scrn U Benzodiazepines Scrn U Cocaine Metab Screen U Marijuana (THC) Screen Ethyl Alcohol ABG Interpretation ABG results: 08/06/25 08/07/25 08/07/25 21:01 04:12 08:35 ABG pH 7.38 ABG pCO2 35 ABG pO2 66 L ABG HCO3 20 ABG O2 Saturation 93 ABG Base Excess -4 L VBG pH 7.36 7.32 L VBG pCO2 39 43 VBG pO2 35 49 VBG Base Excess -3 -4 L Quality Measures Quality Measures none Advance care planning discussed with:: other (not able to have discussion with patient d/t encephalopathy, will attempt to reach surrogate/family) Assessment & Plan Assessment Current Active Medications: Generic Name Dose Route Start Last Admin Trade Name Freq PRN Reason Stop Dose Admin Acetaminophen 650 mg 08/06/25 23:24 Acetaminophen 325 Mg Tablet PO 09/05/25 23:23 Q6H PRN Fever >100.4 Acetaminophen 650 mg 08/06/25 23:24 Acetaminophen 325 Mg Tablet PO 09/05/25 23:23 Q6H PRN PAIN SCALE 1-3 (mild Bumetanide 1 mg 08/07/25 21:00 Bumetanide Inj 0.25 Mg/Ml Vial 4 Ml IVP 09/06/25 20:59 BID GEREMIAS Dextrose 25 ml 08/06/25 23:24 Dextrose 50%-Water Inj 50 Ml Syringe IV 09/05/25 23:23 Q15MIN PRN BG 50-70 responsive npo pt Dextrose 50 ml 08/06/25 23:24 Dextrose 50%-Water Inj 50 Ml Syringe IV 09/05/25 23:23 Q15MIN PRN BG <50 OR BG <70 & pt unresponsive Enoxaparin Sodium 40 mg 08/07/25 09:00 08/07/25 08:17 Enoxaparin Sod Inj 40 Mg/0.4 Ml Syringe SC 08/21/25 08:59 40 mg QDAY GEREMIAS Administration Glucagon 1 mg 08/06/25 23:24 Glucagon Inj 1 Mg Vial IM Q15MIN PRN BG <70, and no IV access Ceftriaxone Sodium/Dextrose 1 gm in 50 mls @ 100 mls/hr 08/07/25 21:00 Rocephin/D5w 1gm Iv Premix IV 08/14/25 20:59 QDAY GEREMIAS Potassium Phosphate 15 mmol in 250 mls @ 62.5 mls/hr 08/07/25 13:53 08/07/25 15:08 Pot Phos 15 Mmol In Ns 250 Ml IV 08/07/25 21:52 62.5 mls/hr Q4H GEREMIAS Administration Insulin Degludec 20 unit 08/07/25 21:00 Insulin Degludec 5 Unit/0.05 Ml (Per 5 Units) SC 09/06/25 20:59 HS GEREMIAS Ondansetron HCl 4 mg 08/06/25 23:24 Ondansetron Inj 2 Mg/Ml Inj 2 Ml IVP 09/05/25 23:23 Q6H PRN NAUSEA OR VOMITING Protocol Sennosides 1 tab 08/06/25 23:24 Senna Tablet PO 09/05/25 23:23 QDAY PRN constipation Protocol Sodium Chloride 3 ml 08/07/25 07:44 Sodium Chloride Rt Bonita 0.9% 3 Ml Nebu INH 09/06/25 07:43 PRN PRN SOLN Plan Cee Mays 75F with pmhx significant for HTN and uncontrolled DM2, not on any medications who presented to [facility] ED 10/8 due to weakness, admitted for HHS #HHS #Diabetes melitis type II #Elevated lactic acid Patient is noncompliant with any of her medications she is a diabetic with hypertension and does not take any type of medications as she says she does not need them. She presented with weakness dizziness nausea vomiting nonbloody, nonbilious. Initial blood sugar was 623, in ED received 10 units of regular insulin and 2 L of IV fluids and blood sugar improved to 483 A1c 13.3, Beta hydroxybutyrate 2.8, ABG shows pH 7.38, CO2 35, had of HCO3 19.8 on renal panel Lactic acid 2..8->18->4.4->4.6->2.4. A1c 13.3 Elevated lactic acid likely 2/2 initial volume depletion from HHS then volume overload resulting in decreased perfusion. Plan: ? Start degludec 20 units hs ? q4 glucose checks ? Avoid IVF as patient received 4L of fluid and RR called for hypoxemia and repeat CXR showed significant vascular congestion ? Keep K >4, Mg>2 ? Zofran for nausea and vomiting ? Hold insulin sliding scale for now for permissive hyperglycemia >300 as patient experienced diaphoresis and dizziness as BS was dropped to 240s following RR #Pulmonary edema #Volume overload Patient received 4 L of fluid boluses in ED, and RR called 10/9 AM for hypoxemia. CXR showed prominent vascular congestion with extensive perihilar edema. Enlargement of cardiac contour with prominent CHF. Plan: - IV Bumex 1 mg QD - Supplemental O2 as needed to keep SpO2 >90% - F/u echocardiogram - Strict I&Os, daily weights - 1.8L fluid restriction #UTI, GNR Evidenced by urinalysis, she states she had mild suprapubic tenderness. Preliminary UCx GNR Plan: ? Rocephin 1 g #TOM, resolved Admission Cr 1.4, baseline 1.1. Likely pre-renal in setting of dehydration Plan: ? Caution with Bumex ? Avoid nephrotoxins ? Renally dose medications #Hypertension Patient is noncompliant with any of her medications, currently normotensive Plan: ? Consider starting BP meds if BP increases Hospital management: Lines: PIV Diet: Carb consistent low, ensure max protein Bowel: Senna prn GI prophylaxis: IV pantoprazole 40 mg BID DVT prophylaxis: Lovenox Disposition: tele for IV diuresis and insulin CODE STATUS: DNR Plan of care discussed with attending Dr. Bush, and PGY-2 Dr. Mina. Agnieszka Ríos DO PGY-1 Internal Medicine Attending Provider Attestation/Addendum Per Gastrografin study it appears I have discussed and was present for the essential components of the history, physical examination, diagnosis, and treatment plan with the resident. I agree with the patient's care as documented by the resident and amended herein by me. Misael Bush DO. Although this document has been carefully reviewed, there may still be some phonetic and other typographical errors. These errors are purely grammatical due to imperfections in the software program and should not be construed in any way to compromise the substance of the patient's medical care during this visit. Patient seen and evaluated this AM. Vital signs stable, patient afebrile, patient remains on high flow nasal cannula, 3060. I/O 2110/1200 mL. Significant labs included WBC of 15.9 which is down trended, VBG corrected pH 7.37, pCO2 37. BMP significant for a sodium of 144, potassium 3.0 which will be repleted, anion gap 18, A1c 13.3%, lactic acid as downtrended, presently 1.5, phosphorus low at 1.9 BNP 389, beta hydroxybutyrate is downtrended to 0.6, procalcitonin 1.59. UA was also positive on arrival. U tox was negative. Chest x-ray demonstrating prominent CHF which is worse than upon admission likely from fluids given. Continue broad-spectrum antibiotics with ceftriaxone for UTI with gram-negative bacteria, speciation pending, will continue insulin degludec at 20 units nightly will also continue Bumex 1 mg IV twice daily for now. May add on additional insulin in the a.m. Accu-Cheks ordered. Will also add on sliding scale insulin. Will continue to monitor closely.
[2025-08-07 18:04] LABS: Lactic Acid, 3 HR 1.5 mMol/L (0.4-2.0)
[2025-08-07] MEDS: INSULIN LISPRO (AdmeLOG) 1 UNIT/0.01 ML UNIT 2 UNIT SC (18:56)
[2025-08-07] MEDS: cefTRIAXone/D5w 1gm IV premix 1 GM/50 ML BAG IV (21:17)
[2025-08-07] MEDS: INSULIN DEGLUDEC 5 UNIT/0.05 ML (PER 5 UNITS) 10 UNIT SC (21:51)
[2025-08-08] VITALS (12 sets, daily range): BP systolic 110–143; BP diastolic 68–81; PULSE 75–95; RESP 13–20; TEMP 35.9–36.3; O2SAT 97–100; BMI 28.1
[2025-08-08 06:17] LABS: Basophils # (Auto) 0.1 Thou/mm3 (0.0-0.2); Basophils % (Auto) 0 % (0-2.5); Eosinophils # (Auto) 0.2 Thou/mm3 (0.0-0.5); Eosinophils % (Auto) 1 % (0-10); Hematocrit 31.7 % (36.0-46.0); Hemoglobin 11.2 g/dL (12.0-16.0); Immature Granulocytes Auto 0.03 Thou/mm3 (0.00-0.00); Lymphocytes # (Auto) 2.1 Thou/mm3 (1.0-4.8); Lymphocytes % (Auto) 15 % (10-50); Mean Corpuscular HGB Conc 35.3 g/dl (31.0-37.0); Mean Corpuscular Hemoglobin 33.6 pg (25.0-35.0); Mean Corpuscular Volume 95 fL (80-100); Monocytes # (Auto) 1.2 Thou/mm3 (0.0-0.8); Monocytes % (Auto) 8 % (0-12); Neutrophils # (Auto) 10.8 Thou/mm3 (1.8-7.7); Neutrophils % (Auto) 75 % (37-80); Nucleated Red Blood Cell # 0.00 Thou/mm3 (0.00-0.00); Nucleated Red Blood Cell % 0 /100 WBC (0); Platelet Count 217 Thou/mm3 (140-440); RDW Standard Deviation 42.9 fL (36.4-46.3); Red Blood Count 3.33 Miln/mm3 (4.00-5.20); White Blood Count 14.3 Thou/mm3 (3.6-11.0)
[2025-08-08 06:55] LABS: Alanine Aminotransferase 15 U/L (10-49); Albumin, Serum 3.5 gm/dL (3.4-4.8); Albumin/Globulin Ratio 1.3 (1.2-2.2); Alkaline Phosphatase 66 U/L (46-116); Anion Gap 13 (7-16); Aspartate Amino Transferase 21 U/L (0-34); BUN/Creatinine Ratio 13 Ratio (12-20); Bilirubin,Total 0.2 mg/dL (0.3-1.2); Blood Urea Nitrogen 16 mg/dL (9-23); Calcium 8.1 mg/dL (8.3-10.6); Calcium (Corrected) 8.5 mg/dL (8.5-10.1); Carbon Dioxide 25.9 mMol/L (20.0-31.0); Chloride 100 mMol/L (98-107); Creatinine (Component) 1.2 mg/dL (0.6-1.3); Estimated Creatinine Clearance 35.0 mL/min (>60); Globulin 2.6 gm/dL (2.3-3.5); Glucose 291 mg/dL (74-106); Magnesium 1.7 mg/dL (1.6-2.6); Osmolality,Calculated 289 (275-295); Phosphorous 4.1 mg/dL (2.4-5.1); Potassium 3.5 mMol/L (3.4-5.1); Sodium 139 mMol/L (136-145); Total Protein 6.1 gm/dL (5.7-8.2); eGFR 47 See Note
--- NOTE | 2025-08-08 08:12 | XR_ITS ---
EXAMINATION: AP chest single view TECHNIQUE: AP portable semiupright chest single view Date and time: August 08, 2025, 0829 hours, comparison August 07, 2025 INDICATIONS: Inpatient with hypoxia FINDINGS: Improvement in heart failure, less vascular congestion and perihilar edema Mild prominence left ventricle Prominent osteopenia IMPRESSION: Improvement in heart failure
[2025-08-08] MEDS: ENOXAPARIN SOD INJ 40 MG/0.4 ML SYRINGE SC (08:13)
[2025-08-08] MEDS: BUMETANIDE INJ 0.25 MG/ML VIAL 4 ML 1 MG IVP ×2 (08:13→21:27)
[2025-08-08] MEDS: Magnesium Sulfate 2 GM Ivpb 2 GM/50 ML BAG IV (08:14)
[2025-08-08] MEDS: INSULIN LISPRO (AdmeLOG) 1 UNIT/0.01 ML UNIT SC ×3 (08:50→18:01)
--- NOTE | 2025-08-08 10:09 | PC.SS ---
DIRECTOR OF ROTC conducted bedside contact with the patient conduct initial assessment and to discuss discharge planning.? Patient confirmed demographic information.? Patient resides at home alone.? Patient is retired.? Patient utilizes a cane to assist with ambulation.? Patient does not utilize home oxygen.? Patient is currently on 5L nasal cannula.? Patient describes the ability to complete ADL?s independently.? Patient reports still possessing ability to drive.? Patient identified niece, Radha Neavrez; as medical surrogate decision maker.? Patient does not possess niece?s contact number.? Patient identified friend, Shraddha Zepeda as point of contact.? Patient utilizes [facility] for PCP services. Patient does not participate with dialysis.? Patient does not possess any specialty providers.? Patient utilizes [facility] for medication services.? Patient confirmed to [facility] code status DNR/DNI.? Patient reports possession of POLST form at residence.? Plan is for the patient to return home at the time of discharge.? If patient requires oxygen at the time of discharge, no preferred vendor identified.? Patient will require assistance with transportation home.? Patient possesses coverage for transport.? No further discharge needs identified by the patient.? No further intervention required at this time, social sciences professor will be available to address any further concerns.? Next of Kin: Lidya Travis D/C Plan: Home
[2025-08-08 11:16] LABS: Influenza A Ag Negative; Influenza B Ag Negative
--- NOTE | 2025-08-08 15:01 | ESPR_ITS ---
<Statement entered by Ty Cruz MD - 08/08/25 15:17> Patient was seen and evaluated at bedside this morning. No acute overnight events. Patient's echo did show EF of 50 to 55%. Patient appears tray drier today and repeat chest x-ray showed quite improvement of pulmonary congestion. Will switch Bumex to 1 mg daily. Will also start patient on ISS and continue degludec 20U. Consulted cardiology for new onset CHF. I have reviewed the note and agree with the resident's assessment & plan with exceptions as below. I have personally reviewed labs, imaging, home meds/prior records, examined the patient, formulated and discussed management plan with my attending Ty Cruz PGY2 Disclaimer: Even though this this note was dictated by speech recognition and even though it was carefully revised there may still be minor errors in medical records coordinator due to voice recognition software. Documentation for date of: 08/08/25 Subjective Subjective Interval history: Overnight, patient only received 10 units of degludec due to caution of dropping blood sugars too fast. Patient seen and examined at bedside. Patient reports feeling well today, reports brain fog is much improved since yesterday. Endorses some short of breath however much improved since yesterday. Able to recall that for the past few months she has been falling frequently, feeling unsteady on her feet and much more fatigued, taking frequent naps. At this time, patient reports not being up to taking insulin as she does not like needles. Vitals and labs reviewed. Patient saturating 90% on 4 L nasal cannula. Blood pressure stable. WBC stable elevated 14.5. Potassium 3.5, repleted with 40 mEq, creatinine 1.2, glucose 291. Lactic decreased from 2.4-1.5. Magnesium 1.0, repleted with 2 g. Plan to start degludec 20 units tonight. Restarted SSI. Decrease Bumex from 1 mg twice daily to daily. Cardiology consulted for moderate pulm hypertension AV sclerosis as well as HFpEF. Continue ceftriaxone for E. coli UTI. Exam Vital Signs Temp Pulse Resp BP Pulse Ox O2 Del Method O2 Flow Rate 97.2 F 77 16 131/79 H 100 Nasal Cannula 4 08/08/25 08:00 08/08/25 14:17 08/08/25 14:17 08/08/25 08:13 08/08/25 14:17 08/08/25 08:00 08/08/25 14:17 FiO2 40 08/08/25 04:00 Narrative Exam GENERAL: AOx3, no acute distress, sitting up comfortably eating breakfast HEENT: NC/AT, mucous membranes dry, bilateral sclera anicteric CARDIOVASCULAR: tachycardic, regular rhythm, S1/S2 present, no murmurs appreciated PULMONARY: mild bilateral crackles at base, diminished breath sounds bilaterally L>R, no wheezing appreciated ABDOMINAL: soft, non-tender, non-distended, no rebound/guarding, bowel sounds present EXTREMITIES: no pitting edema SKIN: warm and dry, intact, no rashes NEURO: CN II-XII grossly intact, no focal deficits, alert, following commands Objective Labs 08/09/25 05:26 08/09/25 12:07 Labs: Laboratory Results - last 24 hr 08/07/25 08/08/25 08/08/25 17:53 05:00 10:58 WBC 14.3 H RBC 3.33 L Hgb 11.2 L Hct 31.7 L MCV 95 MCH 33.6 MCHC 35.3 RDW Std Deviation 42.9 Plt Count 217 D Neut % (Auto) 75 Lymph % (Auto) 15 [place] % (Auto) 8 Eos % (Auto) 1 Baso % (Auto) 0 Neut # (Auto) 10.8 H Lymph # (Auto) 2.1 [place] # (Auto) 1.2 H Eos # (Auto) 0.2 Baso # (Auto) 0.1 Immature Gran # (Auto) 0.03 H Absolute Nucleated RBC 0.00 Immature Gran % 0 Nucleated RBC % 0 Sodium 139 Potassium 3.5 D Chloride 100 Carbon Dioxide 25.9 Anion Gap 13 BUN 16 Creatinine 1.2 Estim Creat Clear Calc 35.0 L eGFR 47 L BUN/Creatinine Ratio 13 Glucose 291 H D Calculated Osmolality 289 Lactic Acid 1.5 Calcium 8.1 L Corrected Calcium 8.5 Phosphorus 4.1 Magnesium 1.7 Total Bilirubin 0.2 L AST 21 ALT 15 Alkaline Phosphatase 66 Total Protein 6.1 Albumin 3.5 D Globulin 2.6 Albumin/Globulin Ratio 1.3 Influenza A (Rapid) Negative Influenza B (Rapid) Negative ABG Interpretation ABG results: 08/06/25 08/07/25 08/07/25 21:01 04:12 08:35 ABG pH 7.38 ABG pCO2 35 ABG pO2 66 L ABG HCO3 20 ABG O2 Saturation 93 ABG Base Excess -4 L VBG pH 7.36 7.32 L VBG pCO2 39 43 VBG pO2 35 49 VBG Base Excess -3 -4 L Quality Measures Quality Measures none Advance care planning discussed with:: patient Assessment & Plan Assessment Current Active Medications: Generic Name Dose Route Start Last Admin Trade Name Freq PRN Reason Stop Dose Admin Acetaminophen 650 mg 08/06/25 23:24 Acetaminophen 325 Mg Tablet PO 09/05/25 23:23 Q6H PRN Fever >100.4 Acetaminophen 650 mg 08/06/25 23:24 Acetaminophen 325 Mg Tablet PO 09/05/25 23:23 Q6H PRN PAIN SCALE 1-3 (mild Bumetanide 1 mg 08/07/25 21:00 08/08/25 08:13 Bumetanide Inj 0.25 Mg/Ml Vial 4 Ml IVP 09/06/25 20:59 1 mg BID GEREMIAS Administration Dextrose 25 ml 08/06/25 23:24 Dextrose 50%-Water Inj 50 Ml Syringe IV 09/05/25 23:23 Q15MIN PRN BG 50-70 responsive npo pt Dextrose 50 ml 08/06/25 23:24 Dextrose 50%-Water Inj 50 Ml Syringe IV 09/05/25 23:23 Q15MIN PRN BG <50 OR BG <70 & pt unresponsive Enoxaparin Sodium 40 mg 08/07/25 09:00 08/08/25 08:13 Enoxaparin Sod Inj 40 Mg/0.4 Ml Syringe SC 08/21/25 08:59 40 mg QDAY GEREMIAS Administration Glucagon 1 mg 08/06/25 23:24 Glucagon Inj 1 Mg Vial IM Q15MIN PRN BG <70, and no IV access Ceftriaxone Sodium/Dextrose 1 gm in 50 mls @ 100 mls/hr 08/07/25 21:00 08/07/25 21:17 Rocephin/D5w 1gm Iv Premix IV 08/14/25 20:59 100 mls/hr QDAY GEREMIAS Administration Insulin Degludec 20 unit 08/07/25 21:00 08/07/25 21:25 Insulin Degludec 5 Unit/0.05 Ml (Per 5 Units) SC 09/06/25 20:59 Not Given HS GEREMIAS Insulin Human Lispro 0 unit 08/08/25 07:30 08/08/25 11:40 Insulin Lispro (Admelog) 1 Unit/0.01 Ml Unit SC 09/07/25 07:29 4 unit AC GEREMIAS Administration Protocol Ondansetron HCl 4 mg 08/06/25 23:24 Ondansetron Inj 2 Mg/Ml Inj 2 Ml IVP 09/05/25 23:23 Q6H PRN NAUSEA OR VOMITING Protocol Pantoprazole Sodium 40 mg 08/07/25 21:00 08/08/25 08:11 Pantoprazole Inj 40 Mg Vial IVP 09/06/25 20:59 40 mg BID GEREMIAS Administration Sennosides 1 tab 08/06/25 23:24 Senna Tablet PO 09/05/25 23:23 QDAY PRN constipation Protocol Sodium Chloride 3 ml 08/07/25 07:44 Sodium Chloride Rt Bonita 0.9% 3 Ml Nebu INH 09/06/25 07:43 PRN PRN SOLN Plan Cee Mays 75F with pmhx significant for HTN and uncontrolled DM2, not on any medications who presented to [facility] ED 08/06 due to weakness, admitted for HHS. #HHS # History of diabetes melitis type II #Elevated lactic acid -improved Patient is noncompliant with any of her medications she is a diabetic with hypertension and does not take any type of medications as she says she does not need them. She presented with weakness dizziness nausea vomiting nonbloody, nonbilious. Initial blood sugar was 623, in ED received 10 units of regular insulin and 2 L of IV fluids and blood sugar improved to 483 A1c 13.3, Beta hydroxybutyrate 2.8, ABG shows pH 7.38, CO2 35, had of HCO3 19.8 on renal panel Lactic acid 2..8->18->4.4->4.6->2.4. A1c 13.3 Elevated lactic acid likely 2/2 initial volume depletion from HHS then volume overload resulting in decreased perfusion. Plan: ? Degludec 20 units hs with AC glucose checks ? Avoid IVF as patient received 4L of fluid and RR called for hypoxemia and repeat CXR showed significant vascular congestion ? Keep K >4, Mg>2 at all times ? Zofran for nausea and vomiting ? Restart SSI #HFpEF (50-55%, 07/2025) #Mild pulmonary HTN #Mild AV sclerosis Patient received 4 L of fluid boluses in ED, and RR called 08/07 AM for hypoxemia. CXR showed prominent vascular congestion with extensive perihilar edema. Enlargement of cardiac contour with prominent CHF. 08/07 TTE showed Normal left ventricular size and function. Approximate ejection fraction is 50-55%. Grade I diastolic dysfunction Normal right ventricular size and function. RVSP 33 mmHg with RAP 3. Mild pulmonary HTN. Mild aortic valve sclerosis without stenosis. Mild thickening of the mitral valve leaflets. Mild mitral and tricuspid regurgitation noted. No pericardial effusion. Plan: - IV Bumex 1 mg QD - Supplemental O2 as needed to keep SpO2 >90% - Cardiology consulted, recs appreciated - Strict I&Os, daily weights - 1.8L fluid restriction #UTI, E. coli Evidenced by urinalysis, she states she had mild suprapubic tenderness. UCx grew E. coli Plan: ? Rocephin 1 g discontinued, start Keflex 500 mg p.o. 4 times daily #TOM, resolved Admission Cr 1.4, baseline 1.1. Likely pre-renal in setting of dehydration vs UTI. Plan: ? Caution with Bumex ? Avoid nephrotoxins ? Renally dose medications #Hypertension Patient is noncompliant with any of her medications, currently normotensive Plan: ? Consider starting BP meds if BP increases Hospital management: Lines: PIV Diet: Carb consistent low, ensure max protein Bowel: Senna prn GI prophylaxis: IV pantoprazole 40 mg BID DVT prophylaxis: Lovenox Disposition: tele for IV diuresis and insulin CODE STATUS: DNR Plan of care discussed with attending Dr. Bush, and PGY-2 Dr. Mina. Agnieszka Ríos DO PGY-1 Internal Medicine Attending Provider Attestation/Addendum I have discussed and was present for the essential components of the history, physical examination, diagnosis, and treatment plan with the resident. I agree with the patient's care as documented by the resident and amended herein by me. Misael Bush DO. Although this document has been carefully reviewed, there may still be some phonetic and other typographical errors. These errors are purely grammatical due to imperfections in the software program and should not be construed in any way to compromise the substance of the patient's medical care during this visit.
--- NOTE | 2025-08-08 15:50 | PC.SS ---
Rounding Note: Cardiology recommendations are pending.
--- NOTE | 2025-08-08 16:04 | PC.SS ---
Addendum entered and electronically signed by TANIYA Steiner 08/11/25 16:22: [facility] transport to [facility] appointment on 08-14-25 @ 9:45 am scheduled. Transport to pick out hand patient at 9:15 am. Patient will be on will call for return transport. Patient provided [employer] number to contact for return trip. Reference #[id number]. Original Note: Follow up appointment at [facility] scheduled for the patient on 08-14-25 @ 9:45 pm at [facility]. Provider will be Linda Simon. [employer] provided information to patient and bedside nurse. Patient to bring insurance cards, medication list and discharge paperwork.
--- NOTE | 2025-08-08 16:29 | PC.SS ---
Radha Nevarez, patient's niece; .
--- NOTE | 2025-08-08 16:45 | ESCONSULT_ITS ---
HPI Data of Consult Requesting Physician: Waldemar Bush DO Admitting Provider: Juanjo Brown MD Attending Provider: Waldeamr Bush DO Primary Care Provider: Physician No Primary/Family Consult Narrative History of present illness: Patient is a 75-year-old female with past medical history of hypertension, uncontrolled type 2 diabetes (insulin-dependent), s/p VATS, currently not on any home medications who presented on 08/06/2025 for generalized weakness, admitted for HHS. Overnight, patient was given total 4 L of IV fluids in setting of HHS, lactic acidosis, TOM. Rapid response was called on 08/07 for toxemia, dyspnea and agitation. O2 saturation was 86-88 via nasal cannula, crackles bilaterally on lung exam. Chest x-ray showed pulmonary congestion, likely secondary to fluid overload, and patient was given Bumex 2 mg x 1, followed by Bumex 1 mg x 2 and Bumex 0.5 x 1 overnight. BNP on admission was 47, repeat BNP 389 at 8 AM 08/07. Echo 08/07 showed normal left ventricular size and function. Approximate ejection fraction is 50-55%. Grade I diastolic dysfunction. Normal right ventricular size and function. RVSP 33 mmHg with RAP 3. Mild pulmonary HTN. Mild aortic valve sclerosis without stenosis. Mild thickening of the mitral valve leaflets. Mild mitral and tricuspid regurgitation noted. No pericardial effusion. Cardiology consulted for new onset HFpEF and mild pulmonary hypertension noted on echo. This morning, patient denies of chest pain, shortness of breath, and palpitations. Reports that she sleeps with 2-3 pillows at night and has been feeling lightheaded for the past week but only with exertion. BP this morning 131/79, does not measure her BP at home. Does not take any medications and does not follow up with PCP at [facility]. Past Medical History: As above Family History: Father had hypertension and CHF, passed at age 80. Mother has borderline diabetes. His sister also has CHF. Denies any other family history of arrhythmias, strokes, MIs. Surgical History: VATS for loculated empyema about 5 years ago Social History: Denies history of smoking, drinks about a glass of wine once a week for the past few years, denies recreational drug use. 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 Current Medications: Previously on insulin however not taking any medications currently Allergies: No known drug allergies cc:: cc: Waldemar Graham Tingle, DO Exam Vital Signs Temp Pulse Resp BP Pulse Ox O2 Del Method O2 Flow Rate 97.3 F 77 16 122/68 100 Nasal Cannula 4 08/08/25 12:00 08/08/25 14:17 08/08/25 14:17 08/08/25 12:00 08/08/25 14:17 08/08/25 12:00 08/08/25 14:17 FiO2 40 08/08/25 04:00 Narrative Exam Physical Exam General: Awake and in no acute distress. Conversational and non-toxic appearing. HEENT: Normocephalic, atraumatic, mucous membranes moist. Heart: Regular rate and rhythm, normal S1 and S2, no murmurs appreciated. Lungs: Clear to auscultation with no wheezing or crackles. Abdomen: Soft, nondistended, nontender, positive bowel sounds. No guarding or rebound tenderness. Neurologic: Alert and oriented x3, no gross neurological deficit, and patient able to move all 4 extremities. Decreased sensation in lateral feet and left anterior ankle. Extremities: No edema. Skin: No rash or ecchymoses. Results Labs 08/08/25 05:00 08/08/25 05:00 Labs: Short CBC 08/08/25 Range/Units 05:00 WBC 14.3 H (3.6-11.0) Thou/mm3 Hgb 11.2 L (12.0-16.0) g/dL Hct 31.7 L (36.0-46.0) % Plt Count 217 D (140-440) Thou/mm3 BMP 08/08/25 05:00 Sodium 139 Potassium 3.5 D Chloride 100 Carbon Dioxide 25.9 BUN 16 Creatinine 1.2 Glucose 291 H D Calcium 8.1 L Liver Function 08/08/25 Range/Units 05:00 Total Bilirubin 0.2 L (0.3-1.2) mg/dL AST 21 (0-34) U/L ALT 15 (10-49) U/L Alkaline Phosphatase 66 (46-116) U/L Albumin 3.5 D (3.4-4.8) gm/dL ABG Interpretation ABG results: 08/06/25 08/07/25 08/07/25 21:01 04:12 08:35 ABG pH 7.38 ABG pCO2 35 ABG pO2 66 L ABG HCO3 20 ABG O2 Saturation 93 ABG Base Excess -4 L VBG pH 7.36 7.32 L VBG pCO2 39 43 VBG pO2 35 49 VBG Base Excess -3 -4 L Quality Measures Quality Measures none Advance care planning discussed with:: patient Medications Home Medications and Allergies Home Medications ?Medication ?Instructions ?Recorded ?Confirmed ?Type No Known Home Medications 04/02/2007/24 History Allergies Allergy/AdvReac Type Severity Reaction Status Date / Time No Known Allergies Allergy Verified 04/02/20 23:23 Visit Medications Acetaminophen (Acetaminophen 325 Mg Tablet) 650 mg PO Q6H PRN PRN Reason: Fever >100.4 Stop: 09/05/25 23:23 Acetaminophen (Acetaminophen 325 Mg Tablet) 650 mg PO Q6H PRN PRN Reason: PAIN SCALE 1-3 (mild Stop: 09/05/25 23:23 Bumetanide (Bumetanide Inj 0.25 Mg/Ml Vial 4 Ml) 1 mg IVP BID [facility] Stop: 09/06/25 20:59 Last Admin: 08/08/25 08:13 Dose: 1 mg Dextrose (Dextrose 50%-Water Inj 50 Ml Syringe) 25 ml IV Q15MIN PRN PRN Reason: BG 50-70 responsive npo pt Stop: 09/05/25 23:23 Dextrose (Dextrose 50%-Water Inj 50 Ml Syringe) 50 ml IV Q15MIN PRN PRN Reason: BG <50 OR BG <70 & pt unresponsive Stop: 09/05/25 23:23 Enoxaparin Sodium (Enoxaparin Sod Inj 40 Mg/0.4 Ml Syringe) 40 mg SC QDAY [facility] Stop: 08/21/25 08:59 Last Admin: 08/08/25 08:13 Dose: 40 mg Glucagon (Glucagon Inj 1 Mg Vial) 1 mg IM Q15MIN PRN PRN Reason: BG <70, and no IV access Ceftriaxone Sodium/Dextrose (Rocephin/D5w 1gm Iv Premix) 1 gm in 50 mls @ 100 mls/hr IV QDAY [facility] Stop: 08/14/25 20:59 Last Admin: 08/07/25 21:17 Dose: 100 mls/hr Insulin Degludec (Insulin Degludec 5 Unit/0.05 Ml (Per 5 Units)) 20 unit SC HS [facility] Stop: 09/06/25 20:59 Last Admin: 08/07/25 21:25 Dose: Not Given Insulin Human Lispro (Insulin Lispro (Admelog) 1 Unit/0.01 Ml Unit) 0 unit SC AC [facility]; Protocol Stop: 09/07/25 07:29 Last Admin: 08/08/25 11:40 Dose: 4 unit Ondansetron HCl (Ondansetron Inj 2 Mg/Ml Inj 2 Ml) 4 mg IVP Q6H PRN; Protocol PRN Reason: NAUSEA OR VOMITING Stop: 09/05/25 23:23 Pantoprazole Sodium (Pantoprazole Inj 40 Mg Vial) 40 mg IVP BID [facility] Stop: 09/06/25 20:59 Last Admin: 08/08/25 08:11 Dose: 40 mg Sennosides (Senna Tablet) 1 tab PO QDAY PRN; Protocol PRN Reason: constipation Stop: 09/05/25 23:23 Sodium Chloride (Sodium Chloride Rt Bonita 0.9% 3 Ml Nebu) 3 ml INH PRN PRN PRN Reason: SOLN Stop: 09/06/25 07:43 Discontinued Medications Albuterol/Ipratropium (Albuterol/Ipratropium (Duoneb) Rt Bonita 3 Ml Nebu) 3 ml INH Q2HR PRN PRN Reason: SHORTNESS OF BREATH OR WHEEZE Stop: 09/06/25 07:41 Bumetanide (Bumetanide Inj 0.25 Mg/Ml Vial 4 Ml) 2 mg IVP X1 ONE Stop: 08/07/25 07:57 Bumetanide (Bumetanide Inj 0.25 Mg/Ml Vial 4 Ml) 1 mg IVP X1 ONE Stop: 08/07/25 08:03 Last Admin: 08/07/25 08:16 Dose: 1 mg Bumetanide (Bumetanide Inj 0.25 Mg/Ml Vial 4 Ml) 1 mg IVP X1 ONE Stop: 08/07/25 12:05 Bumetanide (Bumetanide Inj 0.25 Mg/Ml Vial 4 Ml) 0.5 mg IVP X1 ONE Stop: 08/07/25 12:35 Last Admin: 08/07/25 12:47 Dose: 0.5 mg Sodium Chloride (Ns) 1,000 mls @ 999 mls/hr IV .Q1H1M ONE Stop: 08/06/25 20:56 Last Infusion: 08/06/25 22:00 Dose: Infused Ceftriaxone Sodium/Dextrose (Rocephin/D5w 1gm Iv Premix) 1 gm in 50 mls @ 100 mls/hr IV X1 ONE Stop: 08/06/25 21:31 Last Infusion: 08/06/25 22:45 Dose: Infused Lactated Ringer's (Lactated Ringers) 1,000 mls @ 1,000 mls/hr IV .Q1H ONE Stop: 08/06/25 22:45 Last Admin: 08/06/25 22:21 Dose: 1,000 mls/hr Lactated Ringer's (Lactated Ringers) 1,000 mls @ 999 mls/hr IV .Q1H1M ONE Stop: 08/07/25 00:35 Last Admin: 08/07/25 01:05 Dose: 999 mls/hr Lactated Ringer's (Lactated Ringers) 1,000 mls @ 999 mls/hr IV .Q1H1M ONE Stop: 08/07/25 00:35 Last Admin: 08/07/25 01:06 Dose: 999 mls/hr Potassium Chloride (Kcl Ivpb) 10 meq in 100 mls @ 100 mls/hr IV Q1H GEREMIAS Stop: 08/07/25 02:01 Last Admin: 08/07/25 02:21 Dose: 100 mls/hr Lactated Ringer's (Lactated Ringers) 1,000 mls @ 999 mls/hr IV .Q1H1M ONE Stop: 08/07/25 04:33 Sodium Chloride (Ns) 1,000 mls @ 999 mls/hr IV .Q1H1M ONE Stop: 08/07/25 05:50 Potassium Phosphate (Pot Phos 15 Mmol In Ns 250 Ml) 15 mmol in 250 mls @ 62.5 mls/hr IV Q4H GEREMIAS Stop: 08/07/25 21:52 Last Admin: 08/07/25 20:56 Dose: 62.5 mls/hr Magnesium Sulfate (Magnesium Sulfate Ivpb) 2 gm in 50 mls @ 25 mls/hr IV X1 ONE Stop: 08/08/25 09:18 Last Admin: 08/08/25 08:14 Dose: 25 mls/hr Insulin Degludec (Insulin Degludec 5 Unit/0.05 Ml (Per 5 Units)) 20 unit SC X1 ONE Stop: 08/07/25 00:09 Last Admin: 08/07/25 01:05 Dose: 20 unit Insulin Degludec (Insulin Degludec 5 Unit/0.05 Ml (Per 5 Units)) 10 unit SC X1 ONE Stop: 08/07/25 21:14 Last Admin: 08/07/25 21:51 Dose: 10 unit Insulin Human Lispro (Insulin Lispro (Admelog) 1 Unit/0.01 Ml Unit) 0 unit SC ACHS [facility]; Protocol Stop: 09/06/25 07:29 Insulin Human Lispro (Insulin Lispro (Admelog) 1 Unit/0.01 Ml Unit) 0 unit SC Q6H [facility]; Protocol Stop: 09/05/25 23:44 Last Admin: 08/07/25 02:32 Dose: Not Given Insulin Human Lispro (Insulin Lispro (Admelog) 1 Unit/0.01 Ml Unit) 0 unit SC Q6H GEREMIAS; Protocol Stop: 09/05/25 23:44 Last Admin: 08/07/25 07:53 Dose: 5 unit Insulin Human Lispro (Insulin Lispro (Admelog) 1 Unit/0.01 Ml Unit) 10 unit SC X1 ONE Stop: 08/07/25 04:47 Last Admin: 08/07/25 05:36 Dose: 10 unit Insulin Human Lispro (Insulin Lispro (Admelog) 1 Unit/0.01 Ml Unit) 5 unit SC X1 ONE Stop: 08/07/25 07:44 Last Admin: 08/07/25 07:52 Dose: 5 unit Insulin Human Lispro (Insulin Lispro (Admelog) 1 Unit/0.01 Ml Unit) 2 unit SC X1 ONE Stop: 08/07/25 18:33 Last Admin: 08/07/25 18:56 Dose: 2 unit Insulin Human Regular (Insulin Hum Regular 1 Unit/0.01 Ml (Per Unit)) 10 unit IV X1 ONE Stop: 08/06/25 19:57 Last Admin: 08/06/25 20:47 Dose: 10 unit Levalbuterol HCl (Levalbuterol Rt 1.25 Mg/0.5 Ml Nebu) 1.25 mg INH X1 ONE Stop: 08/07/25 07:45 Last Admin: 08/07/25 08:21 Dose: 1.25 mg Methylprednisolone Sodium Succinate (Methylprednisolone Sod Succ 40 Mg/Ml Vial) 40 mg IVP X1 ONE Stop: 08/07/25 07:43 Last Admin: 08/07/25 07:49 Dose: 40 mg Ondansetron HCl (Ondansetron Inj 2 Mg/Ml Inj 2 Ml) 4 mg IVP X1 ONE; Protocol Stop: 08/06/25 19:57 Last Admin: 08/06/25 20:44 Dose: 4 mg Potassium Chloride (Potassium Chloride 20 Meq Tabcr) 40 meq PO X1 ONE Stop: 08/08/25 07:20 Last Admin: 08/08/25 08:13 Dose: 40 meq Assessment & Plan Plan Patient is a 75-year-old female with past medical history of hypertension uncontrolled type 2 diabetes (insulin-dependent), currently not on any home medications who presented on 08/06/2025 for generalized weakness, admitted for HHS. Cardiology consulted for new onset HFpEF and mild pulmonary hypertension noted on echo. #New onset HFpEF (50-55%, 07/2025) #Grade I diastolic diysfunction #Mild pulmonary HTN #Mild AV sclerosis #Hx of HTN S/p 4 L of fluid boluses in ED, and RR called 08/07 AM for hypoxemia. CXR showed prominent vascular congestion with extensive perihilar edema. Enlargement of cardiac contour with prominent CHF. S/p aggressive diuresis with Bumex overnight. BP 189/104 on admission -> 118/74. BNP 49 > 389, previously 106 in 03/2025. Creatinine 1.4 -> 1.2 (at baseline). A1c 13.3. TSH 4.51. 08/07 TTE showed Normal left ventricular size and function. Approximate ejection fraction is 50-55%. Grade I diastolic dysfunction Normal right ventricular size and function. RVSP 33 mmHg with RAP 3. Mild pulmonary HTN. Mild aortic valve sclerosis without stenosis. Mild thickening of the mitral valve leaflets. Mild mitral and tricuspid regurgitation noted. No pericardial effusion. CXR 08/08/25 shows improvement in HF with less vascular congestion and perihilar edema. Mild prominence of left ventricle. Plan: - Bumex 1 mg daily. - later we can spiranolactoine and SGLT2 in setting of DM if BP and renal function permits. - Monitor renal function - Keep K >4 and Mg >2 - Strict ins and outs -Daily weights -Fluid restriction 1800 ml -Supplemental O2 as needed, wean as tolerated -Pt recommended to follow up with cardiology as outpt and to be compliant with meds. #HHS #DM type II, previously insulin dependent - A1c 13.3, non compliant with insulin #Elevated lactic acid, resolved #UTI, E. coli - on Rocephin #TOM, resolved Thank you for your consultation, please do not hesitate to reach out if you have any question or concern Patient plan of care was discussed with the attending physician, Dr. Dickson. Vianey Ríos, PGY-1 Attending Provider Attestation/Addendum I have personally seen and examined the patient separately on the above date of service and discussed the plan of care with the resident. I reviewed the resident Dr. Vianey Ríos consultation progress note and agree with the resident findings and plan in the note above and have also edited the documentation to reflect my findings and plan. Kian Dickson M.D. Interventional Cardiology
[2025-08-08] MEDS: INSULIN LISPRO (AdmeLOG) 1 UNIT/0.01 ML UNIT 3 UNIT SC (18:42)
[2025-08-08] MEDS: INSULIN DEGLUDEC 5 UNIT/0.05 ML (PER 5 UNITS) 20 UNIT SC (21:25)
[2025-08-08] MEDS: cefTRIAXone/D5w 1gm IV premix 1 GM/50 ML BAG IV (21:29)
[2025-08-09] VITALS (10 sets, daily range): BP systolic 123–149; BP diastolic 73–87; PULSE 73–99; RESP 12–23; TEMP 35.8–36.7; O2SAT 87–100; BMI 28.8
[2025-08-09 05:57] LABS: Basophils # (Auto) 0.1 Thou/mm3 (0.0-0.2); Basophils % (Auto) 1 % (0-2.5); Eosinophils # (Auto) 0.4 Thou/mm3 (0.0-0.5); Eosinophils % (Auto) 4 % (0-10); Hematocrit 33.1 % (36.0-46.0); Hemoglobin 11.7 g/dL (12.0-16.0); Immature Granulocytes Auto 0.04 Thou/mm3 (0.00-0.00); Lymphocytes # (Auto) 1.9 Thou/mm3 (1.0-4.8); Lymphocytes % (Auto) 19 % (10-50); Mean Corpuscular HGB Conc 35.3 g/dl (31.0-37.0); Mean Corpuscular Hemoglobin 33.4 pg (25.0-35.0); Mean Corpuscular Volume 95 fL (80-100); Monocytes # (Auto) 1.3 Thou/mm3 (0.0-0.8); Monocytes % (Auto) 13 % (0-12); Neutrophils # (Auto) 6.6 Thou/mm3 (1.8-7.7); Neutrophils % (Auto) 64 % (37-80); Nucleated Red Blood Cell # 0.00 Thou/mm3 (0.00-0.00); Nucleated Red Blood Cell % 0 /100 WBC (0); Platelet Count 232 Thou/mm3 (140-440); RDW Standard Deviation 42.2 fL (36.4-46.3); Red Blood Count 3.50 Miln/mm3 (4.00-5.20); White Blood Count 10.3 Thou/mm3 (3.6-11.0)
[2025-08-09 06:37] LABS: Alanine Aminotransferase 26 U/L (10-49); Albumin, Serum 3.8 gm/dL (3.4-4.8); Albumin/Globulin Ratio 1.4 (1.2-2.2); Alkaline Phosphatase 67 U/L (46-116); Anion Gap 11 (7-16); Aspartate Amino Transferase 29 U/L (0-34); BUN/Creatinine Ratio 24 Ratio (12-20); Bilirubin,Total 0.2 mg/dL (0.3-1.2); Blood Urea Nitrogen 33 mg/dL (9-23); Calcium 8.8 mg/dL (8.3-10.6); Calcium (Corrected) 9.0 mg/dL (8.5-10.1); Carbon Dioxide 28.5 mMol/L (20.0-31.0); Cardiac Risk Estimate 5.2 RATIO (3.7-5.6); Chloride 97 mMol/L (98-107); Cholesterol 207 mg/dL (132-200); Creatinine (Component) 1.4 mg/dL (0.6-1.3); Estimated Creatinine Clearance 30.3 mL/min (>60); Globulin 2.8 gm/dL (2.3-3.5); Glucose 399 mg/dL (74-106); HDL Cholesterol 40 mg/dL (40-60); LDL Cholesterol,Calculated 110 mg/dL (0-130); Magnesium 1.9 mg/dL (1.6-2.6); Osmolality,Calculated 296 (275-295); Phosphorous 3.0 mg/dL (2.4-5.1); Potassium 4.2 mMol/L (3.4-5.1); Sodium 136 mMol/L (136-145); Total Protein 6.6 gm/dL (5.7-8.2); Triglycerides 286 mg/dL (30-150); eGFR 39 See Note
[2025-08-09 07:04] LABS: Free T4 (Free Thyroxine) 0.96 ng/dL (0.89-1.76)
[2025-08-09] MEDS: INSULIN LISPRO (AdmeLOG) 1 UNIT/0.01 ML UNIT SC ×3 (08:10→17:59)
[2025-08-09] MEDS: BUMETANIDE 0.5 MG TABLET 1 MG PO (08:14)
[2025-08-09] MEDS: ENOXAPARIN SOD INJ 40 MG/0.4 ML SYRINGE SC (08:16)
[2025-08-09] MEDS: cefTRIAXone/D5w 1gm IV premix 1 GM/50 ML BAG IV (08:18)
[2025-08-09] MEDS: SODIUM CHLORIDE 0.9% 250 ML 250 ML 999 ML IV (08:20)
[2025-08-09] MEDS: INSULIN LISPRO (AdmeLOG) 1 UNIT/0.01 ML UNIT 4 UNIT SC ×2 (12:12→17:59)
--- NOTE | 2025-08-09 12:35 | PD.RESPRO ---
Documentation for date of: 08/09/25 Subjective Subjective Interval history: Patient was seen examined bedside this morning. No acute overnight events. Patient has been diuresing well, but will transition to Bumex 1 mg p.o. daily today. Also transition to Keflex 500 mg 4 times daily for UTI. Patient did develop small TOM at 1.4 creatinine and therefore gave a 250 mL bolus. Also placed patient's on lispro 4 units 3 times daily with meals along with the sliding scale and degludec. No other complaints at this time expect possible discharge in the next 24 to 48 hours if blood sugars better controlled. Exam Vital Signs Temp Pulse Resp BP Pulse Ox O2 Del Method O2 Flow Rate 96.7 F L 76 16 123/73 99 Nasal Cannula 2 08/09/25 12:00 08/09/25 12:00 08/09/25 12:00 08/09/25 12:00 08/09/25 12:00 08/09/25 12:00 08/09/25 12:00 FiO2 40 08/08/25 04:00 Narrative Exam General: A/O x3, no acute distress Eyes: PERRL, EOMI. Anicteric, vision grossly intact. Ears: No ear pain, no ear discharge, Hearing grossly intact. Nose: No nasal discharge. Mouth/Throat: Moist mucous membranes, no redness, no lesions. Neck: Neck supple, non-tender, no cervical lymphadenopathy. Lungs: Clear GILMER Upper lobes and mild crackles in GILMER lower lobes, No accessory muscle use. Cardio: Normal S1/S2, regular rhythm, no murmurs, no JVD or carotid bruits. Abdomen: Soft, non-tender, no palpable masses, peristalsis present, no guarding or rebound. Extremities: Symmetrical, no significant deformities, no peripheral edema , non-tender, peripheral pulses presents. Skin: No rashes, no lesions, warm to touch. Neuro: No focal neurological deficits. motor and sensory intact. Psych: Cooperative, appropriate mood and effect. Objective Labs 08/09/25 05:26 08/09/25 12:07 Labs: Laboratory Results - last 24 hr 08/09/25 05:26 WBC 10.3 RBC 3.50 L Hgb 11.7 L Hct 33.1 L MCV 95 MCH 33.4 MCHC 35.3 RDW Std Deviation 42.2 Plt Count 232 Neut % (Auto) 64 Lymph % (Auto) 19 [place] % (Auto) 13 H Eos % (Auto) 4 Baso % (Auto) 1 Neut # (Auto) 6.6 Lymph # (Auto) 1.9 [place] # (Auto) 1.3 H Eos # (Auto) 0.4 Baso # (Auto) 0.1 Immature Gran # (Auto) 0.04 H Absolute Nucleated RBC 0.00 Immature Gran % 0 Nucleated RBC % 0 Sodium 136 Potassium 4.2 D Chloride 97 L Carbon Dioxide 28.5 Anion Gap 11 BUN 33 H Creatinine 1.4 H Estim Creat Clear Calc 30.3 L eGFR 39 L BUN/Creatinine Ratio 24 H Glucose 399 H D Calculated Osmolality 296 H Calcium 8.8 Corrected Calcium 9.0 Phosphorus 3.0 Magnesium 1.9 Total Bilirubin 0.2 L AST 29 ALT 26 Alkaline Phosphatase 67 Total Protein 6.6 Albumin 3.8 Globulin 2.8 Albumin/Globulin Ratio 1.4 Triglycerides 286 H Cholesterol 207 H LDL Cholesterol, Calc 110 HDL Cholesterol 40 Cholesterol/HDL Ratio 5.2 Free T4 0.96 ABG Interpretation ABG results: 08/06/25 08/07/25 08/07/25 21:01 04:12 08:35 ABG pH 7.38 ABG pCO2 35 ABG pO2 66 L ABG HCO3 20 ABG O2 Saturation 93 ABG Base Excess -4 L VBG pH 7.36 7.32 L VBG pCO2 39 43 VBG pO2 35 49 VBG Base Excess -3 -4 L Quality Measures Quality Measures none Advance care planning discussed with:: patient Assessment & Plan Assessment Current Active Medications: Generic Name Dose Route Start Last Admin Trade Name Freq PRN Reason Stop Dose Admin Acetaminophen 650 mg 08/06/25 23:24 Acetaminophen 325 Mg Tablet PO 09/05/25 23:23 Q6H PRN Fever >100.4 Acetaminophen 650 mg 08/06/25 23:24 Acetaminophen 325 Mg Tablet PO 09/05/25 23:23 Q6H PRN PAIN SCALE 1-3 (mild Bumetanide 1 mg 08/09/25 09:00 08/09/25 08:14 Bumetanide 0.5 Mg Tablet PO 09/08/25 08:59 1 mg QDAY GEREMIAS Administration Cephalexin HCl 500 mg 08/09/25 12:00 08/09/25 12:13 Cephalexin 250 Mg Capsule PO 08/16/25 11:59 500 mg QID GEREMIAS Administration Dextrose 25 ml 08/06/25 23:24 Dextrose 50%-Water Inj 50 Ml Syringe IV 09/05/25 23:23 Q15MIN PRN BG 50-70 responsive npo pt Dextrose 50 ml 08/06/25 23:24 Dextrose 50%-Water Inj 50 Ml Syringe IV 09/05/25 23:23 Q15MIN PRN BG <50 OR BG <70 & pt unresponsive Enoxaparin Sodium 40 mg 08/07/25 09:00 08/09/25 08:16 Enoxaparin Sod Inj 40 Mg/0.4 Ml Syringe SC 08/21/25 08:59 40 mg QDAY GEREMIAS Administration Glucagon 1 mg 08/06/25 23:24 Glucagon Inj 1 Mg Vial IM Q15MIN PRN BG <70, and no IV access Insulin Degludec 20 unit 08/07/25 21:00 08/08/25 21:25 Insulin Degludec 5 Unit/0.05 Ml (Per 5 Units) SC 09/06/25 20:59 20 unit HS GEREMIAS Administration Insulin Human Lispro 0 unit 08/08/25 07:30 08/09/25 12:13 Insulin Lispro (Admelog) 1 Unit/0.01 Ml Unit SC 09/07/25 07:29 4 unit AC GEREMIAS Administration Protocol Insulin Human Lispro 4 unit 08/09/25 12:00 08/09/25 12:12 Insulin Lispro (Admelog) 1 Unit/0.01 Ml Unit SC 09/08/25 11:59 4 unit TIDWM GEREMIAS Administration Ondansetron HCl 4 mg 08/06/25 23:24 Ondansetron Inj 2 Mg/Ml Inj 2 Ml IVP 09/05/25 23:23 Q6H PRN NAUSEA OR VOMITING Protocol Pantoprazole Sodium 40 mg 08/09/25 21:00 Pantoprazole 40 Mg Tablet PO 09/08/25 20:59 BID GEREMIAS Sennosides 1 tab 08/06/25 23:24 Senna Tablet PO 09/05/25 23:23 QDAY PRN constipation Protocol Sodium Chloride 3 ml 08/07/25 07:44 Sodium Chloride Rt Bonita 0.9% 3 Ml Nebu INH 09/06/25 07:43 PRN PRN SOLN Jg Mays 75F with pmhx significant for HTN and uncontrolled DM2, not on any medications who presented to [facility] ED 08/06 due to weakness, admitted for HHS. #HHS #Diabetes melitis type II #Elevated lactic acid Patient is noncompliant with any of her medications she is a diabetic with hypertension and does not take any type of medications as she says she does not need them. She presented with weakness dizziness nausea vomiting nonbloody, nonbilious. Initial blood sugar was 623, in ED received 10 units of regular insulin and 2 L of IV fluids and blood sugar improved to 483 A1c 13.3, Beta hydroxybutyrate 2.8, ABG shows pH 7.38, CO2 35, had of HCO3 19.8 on renal panel Lactic acid 2..8->18->4.4->4.6->2.4. A1c 13.3 Elevated lactic acid likely 2/2 initial volume depletion from HHS then volume overload resulting in decreased perfusion. Plan: ? Degludec 20 units hs with AC glucose checks - Lispro 4U TIDWM ? Keep K >4, Mg>2 at all times ? Zofran for nausea and vomiting ? SSI #HFpEF (50-55%, 07/2025) #Mild pulmonary HTN #Mild AV sclerosis Patient received 4 L of fluid boluses in ED, and RR called 08/07 AM for hypoxemia. CXR showed prominent vascular congestion with extensive perihilar edema. Enlargement of cardiac contour with prominent CHF. 08/07 TTE showed Normal left ventricular size and function. Approximate ejection fraction is 50-55%. Grade I diastolic dysfunction Normal right ventricular size and function. RVSP 33 mmHg with RAP 3. Mild pulmonary HTN. Mild aortic valve sclerosis without stenosis. Mild thickening of the mitral valve leaflets. Mild mitral and tricuspid regurgitation noted. No pericardial effusion. Plan: - Switched to PO Bumex 1 mg QD - Supplemental O2 as needed to keep SpO2 >90% - Cardiology consulted, recs appreciated - Strict I&Os, daily weights - 1.8L fluid restriction #UTI, E. coli Evidenced by urinalysis, she states she had mild suprapubic tenderness. UCx grew E. coli Plan: ? Switched to keflex 500mg QID #TOM, Admission Cr 1.4, baseline 1.1. Likely pre-renal in setting of dehydration vs UTI. Plan: ? IVF bolus 250cc - Switch to PO Bumex ? Avoid nephrotoxins ? Renally dose medications #Hypertension Patient is noncompliant with any of her medications, currently normotensive Plan: ? Consider starting BP meds if BP increases Disposition: Pending better BG control Diet: carb low GI prophylaxis: protonix DVT prophylaxis: lovenox Code:DNR Case disclosed with Attending Dr. Eleazar Cruz PGY2 Disclaimer: Even though this this note was dictated by speech recognition and even though it was carefully revised there may still be minor errors in precision aircraft systems assembler due to voice recognition software. Attending Provider Attestation/Addendum I have discussed and was present for the essential components of the history, physical examination, diagnosis, and treatment plan with the resident. I agree with the patient's care as documented by the resident and amended herein by me. Misael Bush, DO. Although this document has been carefully reviewed, there may still be some phonetic and other typographical errors. These errors are purely grammatical due to imperfections in the software program and should not be construed in any way to compromise the substance of the patient's medical care during this visit. Patient seen and evaluated this AM. No acute events overnight, vital signs stable, patient afebrile, I/os 1790/3700 mL overnight, blood glucose still very elevated at 371 today, CBC largely unremarkable, BMP 3.3 and creatinine 1 point 4 in the AM however has downtrended to 1.2 after small bolus. Uptrending creatinine likely secondary to Bumex which was changed to 1 mg p.o. daily. Urine culture demonstrating E. coli which she was treated with ceftriaxone however has been transition to Keflex 500 mg p.o. 4 times daily. For the patient's elevated blood glucose, she is on insulin degludec 20 units nightly, sliding scale insulin and we have started lispro 4 units 3 times daily AC and will uptitrate as necessary. Will continue to monitor closely, likely discharge in 1 to 2 days pending further improvement in her blood glucose level.
[2025-08-09 13:04] LABS: Albumin, Serum 3.9 gm/dL (3.4-4.8); Anion Gap 11 (7-16); BUN/Creatinine Ratio 26 Ratio (12-20); Blood Urea Nitrogen 31 mg/dL (9-23); Calcium 8.8 mg/dL (8.3-10.6); Calcium (Corrected) 8.9 mg/dL (8.5-10.1); Carbon Dioxide 27.3 mMol/L (20.0-31.0); Chloride 99 mMol/L (98-107); Creatinine (Component) 1.2 mg/dL (0.6-1.3); Estimated Creatinine Clearance 35.4 mL/min (>60); Glucose 331 mg/dL (74-106); Osmolality,Calculated 293 (275-295); Phosphorous 3.1 mg/dL (2.4-5.1); Potassium 3.3 mMol/L (3.4-5.1); Sodium 137 mMol/L (136-145); eGFR 47 See Note
--- NOTE | 2025-08-09 14:54 | ESPR_ITS ---
<Statement entered by Krystyna Starr MD - 08/10/25 19:12> I personally examined the patient evaluated appears today I personally inquired well patient was started back on her medication with no problems maintaining sinus rhythm not have any chest pain shortness evaluated patient with resident physician PGY 2 Dr. Chris WYLIE agree with treatment plan recommendation will continue to monitor the patient closely Documentation for date of: 08/09/25 Subjective Subjective Interval history: No acute overnight events. Seen and examined at bedside and patient resting comfortably in bed. Denies any shortness of breath, chest discomfort, or lower extremity edema. Transition to Bumex 1 mg p.o. daily and Keflex 400 mg 4 times daily. Primary team made adjustments to her insulin regimen for her diabetes. Exam Vital Signs Temp Pulse Resp BP Pulse Ox O2 Del Method O2 Flow Rate 96.7 F L 76 16 123/73 99 Nasal Cannula 2 08/09/25 12:00 08/09/25 12:00 08/09/25 12:00 08/09/25 12:00 08/09/25 12:00 08/09/25 12:00 08/09/25 12:00 FiO2 40 08/08/25 04:00 Narrative Exam General: Awake and in no acute distress. Conversational and non-toxic appearing. HEENT: Normocephalic, atraumatic, mucous membranes moist. Heart: Regular rate and rhythm, normal S1 and S2, no murmurs appreciated. Lungs: Clear to auscultation with no wheezing or crackles. Abdomen: Soft, nondistended, nontender, positive bowel sounds. No guarding or rebound tenderness. Neurologic: Alert and oriented x3, no gross neurological deficit, and patient able to move all 4 extremities. Decreased sensation in lateral feet and left anterior ankle. Extremities: No edema. Skin: No rash or ecchymoses. Objective Labs 08/09/25 05:26 08/09/25 12:07 Labs: Laboratory Results - last 24 hr 08/09/25 08/09/25 05:26 12:07 WBC 10.3 RBC 3.50 L Hgb 11.7 L Hct 33.1 L MCV 95 MCH 33.4 MCHC 35.3 RDW Std Deviation 42.2 Plt Count 232 Neut % (Auto) 64 Lymph % (Auto) 19 [place] % (Auto) 13 H Eos % (Auto) 4 Baso % (Auto) 1 Neut # (Auto) 6.6 Lymph # (Auto) 1.9 [place] # (Auto) 1.3 H Eos # (Auto) 0.4 Baso # (Auto) 0.1 Immature Gran # (Auto) 0.04 H Absolute Nucleated RBC 0.00 Immature Gran % 0 Nucleated RBC % 0 Sodium 136 137 Potassium 4.2 D 3.3 L D Chloride 97 L 99 Carbon Dioxide 28.5 27.3 Anion Gap 11 11 BUN 33 H 31 H Creatinine 1.4 H 1.2 Estim Creat Clear Calc 30.3 L 35.4 L eGFR 39 L 47 L BUN/Creatinine Ratio 24 H 26 H Glucose 399 H D 331 H D Calculated Osmolality 296 H 293 Calcium 8.8 8.8 Corrected Calcium 9.0 8.9 Phosphorus 3.0 3.1 Magnesium 1.9 Total Bilirubin 0.2 L AST 29 ALT 26 Alkaline Phosphatase 67 Total Protein 6.6 Albumin 3.8 3.9 Globulin 2.8 Albumin/Globulin Ratio 1.4 Triglycerides 286 H Cholesterol 207 H LDL Cholesterol, Calc 110 HDL Cholesterol 40 Cholesterol/HDL Ratio 5.2 Free T4 0.96 ABG Interpretation ABG results: 08/06/25 08/07/25 08/07/25 21:01 04:12 08:35 ABG pH 7.38 ABG pCO2 35 ABG pO2 66 L ABG HCO3 20 ABG O2 Saturation 93 ABG Base Excess -4 L VBG pH 7.36 7.32 L VBG pCO2 39 43 VBG pO2 35 49 VBG Base Excess -3 -4 L Quality Measures Quality Measures none Advance care planning discussed with:: patient Assessment & Plan Assessment Current Active Medications: Generic Name Dose Route Start Last Admin Trade Name Freq PRN Reason Stop Dose Admin Acetaminophen 650 mg 08/06/25 23:24 Acetaminophen 325 Mg Tablet PO 09/05/25 23:23 Q6H PRN Fever >100.4 Acetaminophen 650 mg 08/06/25 23:24 Acetaminophen 325 Mg Tablet PO 09/05/25 23:23 Q6H PRN PAIN SCALE 1-3 (mild Bumetanide 1 mg 08/09/25 09:00 08/09/25 08:14 Bumetanide 0.5 Mg Tablet PO 09/08/25 08:59 1 mg QDAY GEREMIAS Administration Cephalexin HCl 500 mg 08/09/25 12:00 08/09/25 12:13 Cephalexin 250 Mg Capsule PO 08/16/25 11:59 500 mg QID GEREMIAS Administration Dextrose 25 ml 08/06/25 23:24 Dextrose 50%-Water Inj 50 Ml Syringe IV 09/05/25 23:23 Q15MIN PRN BG 50-70 responsive npo pt Dextrose 50 ml 08/06/25 23:24 Dextrose 50%-Water Inj 50 Ml Syringe IV 09/05/25 23:23 Q15MIN PRN BG <50 OR BG <70 & pt unresponsive Enoxaparin Sodium 40 mg 08/07/25 09:00 08/09/25 08:16 Enoxaparin Sod Inj 40 Mg/0.4 Ml Syringe SC 08/21/25 08:59 40 mg QDAY GEREMIAS Administration Glucagon 1 mg 08/06/25 23:24 Glucagon Inj 1 Mg Vial IM Q15MIN PRN BG <70, and no IV access Insulin Degludec 20 unit 08/07/25 21:00 08/08/25 21:25 Insulin Degludec 5 Unit/0.05 Ml (Per 5 Units) SC 09/06/25 20:59 20 unit HS GEREMIAS Administration Insulin Human Lispro 0 unit 08/08/25 07:30 08/09/25 12:13 Insulin Lispro (Admelog) 1 Unit/0.01 Ml Unit SC 09/07/25 07:29 4 unit AC GEREMIAS Administration Protocol Insulin Human Lispro 4 unit 08/09/25 12:00 08/09/25 12:12 Insulin Lispro (Admelog) 1 Unit/0.01 Ml Unit SC 09/08/25 11:59 4 unit TIDWM GEREMIAS Administration Ondansetron HCl 4 mg 08/06/25 23:24 Ondansetron Inj 2 Mg/Ml Inj 2 Ml IVP 09/05/25 23:23 Q6H PRN NAUSEA OR VOMITING Protocol Pantoprazole Sodium 40 mg 08/09/25 21:00 Pantoprazole 40 Mg Tablet PO 09/08/25 20:59 BID GEREMIAS Sennosides 1 tab 08/06/25 23:24 Senna Tablet PO 09/05/25 23:23 QDAY PRN constipation Protocol Sodium Chloride 3 ml 08/07/25 07:44 Sodium Chloride Rt [place] 0.9% 3 Ml Nebu INH 09/06/25 07:43 PRN PRN SOLN Plan 75-year-old female with past medical history of hypertension uncontrolled type 2 diabetes (insulin-dependent), currently not on any home medications who presented on 08/06/2025 for generalized weakness, admitted for [facility]. Cardiology consulted for new onset HFpEF and mild pulmonary hypertension noted on echo. #New onset HFpEF (50-55%, 07/2025) #Grade I diastolic diysfunction #Mild pulmonary hypertension #Mild AV sclerosis Received 4 L of fluid boluses in ED and RR called 08/07 AM for hypoxemia. CXR showed prominent vascular congestion with extensive perihilar edema, enlarged cardiac contour with prominent CHF. Received aggressive diuresis with Bumex overnight. BNP 49 -> 389, previously 106 in 03/2025. Repeat CXR 08/08 shows improvement in HF with less vascular congestion and perihilar edema. Creatinine 1.4 -> 1.2 (at baseline). A1c 13.3%. TSH 4.51. TTE on 08/07: normal LV size and function, EF 50-55%, G1DD. Normal RV size and function. RVSP 33 mmHg with RAP 3. Mild pulmonary HTN. Mild aortic valve sclerosis without stenosis. Mild thickening of mitral valve leaflets. Mild MR and TR. ? Bumex 1 mg p.o. daily ? Can add SGLT2 in setting of diabetes if BP permits ? Strict I's/O's, daily weights, fluid restriction (1.8 L daily) ? Supplemental oxygen as needed, wean as tolerated ? Follow-up cardiology as outpatient for continued management #History of hypertension BP 189/104 on admission -> 118/74. ? Blood pressure currently controlled, management per primary team #[facility] #Type 2 diabetes mellitus (A1c 13.3%) #Elevated lactic acid, resolved #E. coli UTI #TOM ? Continue management per primary team ----- Plan discussed with attending physician Dr. Matty Wylie MD PGY-2 Internal Medicine
--- NOTE | 2025-08-09 16:30 | PC.SS ---
Rounding note: Cardiologyh consulted, reccommendations pending. Blood sugar being monitored, will discharge home when medically clear.
[2025-08-09] MEDS: ONDANSETRON INJ 2 MG/ML INJ 2 ML 4 MG IVP (20:42)
[2025-08-09] MEDS: PANTOPRAZOLE 40 MG TABLET PO (20:50)
[2025-08-09] MEDS: INSULIN DEGLUDEC 5 UNIT/0.05 ML (PER 5 UNITS) 20 UNIT SC (20:54)
[2025-08-10] VITALS (12 sets, daily range): BP systolic 109–172; BP diastolic 67–108; PULSE 69–99; RESP 16–21; TEMP 35.9–36.6; O2SAT 91–100; BMI 27.6
[2025-08-10 04:55] LABS: Basophils # (Auto) 0.1 Thou/mm3 (0.0-0.2); Basophils % (Auto) 1 % (0-2.5); Eosinophils # (Auto) 0.5 Thou/mm3 (0.0-0.5); Eosinophils % (Auto) 5 % (0-10); Hematocrit 32.0 % (36.0-46.0); Hemoglobin 11.4 g/dL (12.0-16.0); Immature Granulocytes Auto 0.04 Thou/mm3 (0.00-0.00); Lymphocytes # (Auto) 1.9 Thou/mm3 (1.0-4.8); Lymphocytes % (Auto) 20 % (10-50); Mean Corpuscular HGB Conc 35.6 g/dl (31.0-37.0); Mean Corpuscular Hemoglobin 33.3 pg (25.0-35.0); Mean Corpuscular Volume 94 fL (80-100); Monocytes # (Auto) 1.3 Thou/mm3 (0.0-0.8); Monocytes % (Auto) 14 % (0-12); Neutrophils # (Auto) 5.6 Thou/mm3 (1.8-7.7); Neutrophils % (Auto) 60 % (37-80); Nucleated Red Blood Cell # 0.00 Thou/mm3 (0.00-0.00); Nucleated Red Blood Cell % 0 /100 WBC (0); Platelet Count 236 Thou/mm3 (140-440); RDW Standard Deviation 40.3 fL (36.4-46.3); Red Blood Count 3.42 Miln/mm3 (4.00-5.20); White Blood Count 9.4 Thou/mm3 (3.6-11.0)
[2025-08-10 05:18] LABS: Alanine Aminotransferase 23 U/L (10-49); Albumin, Serum 3.5 gm/dL (3.4-4.8); Albumin/Globulin Ratio 1.3 (1.2-2.2); Alkaline Phosphatase 58 U/L (46-116); Anion Gap 10 (7-16); Aspartate Amino Transferase 25 U/L (0-34); BUN/Creatinine Ratio 31 Ratio (12-20); Bilirubin,Total 0.2 mg/dL (0.3-1.2); Blood Urea Nitrogen 31 mg/dL (9-23); Calcium 8.5 mg/dL (8.3-10.6); Calcium (Corrected) 8.9 mg/dL (8.5-10.1); Carbon Dioxide 27.3 mMol/L (20.0-31.0); Chloride 100 mMol/L (98-107); Creatinine (Component) 1.0 mg/dL (0.6-1.3); Estimated Creatinine Clearance 42.5 mL/min (>60); Globulin 2.6 gm/dL (2.3-3.5); Glucose 305 mg/dL (74-106); Magnesium 1.9 mg/dL (1.6-2.6); Osmolality,Calculated 291 (275-295); Phosphorous 3.5 mg/dL (2.4-5.1); Potassium 3.3 mMol/L (3.4-5.1); Sodium 137 mMol/L (136-145); Total Protein 6.1 gm/dL (5.7-8.2); eGFR 58 See Note
[2025-08-10] MEDS: INSULIN LISPRO (AdmeLOG) 1 UNIT/0.01 ML UNIT SC ×2 (08:09→11:50)
[2025-08-10] MEDS: INSULIN LISPRO (AdmeLOG) 1 UNIT/0.01 ML UNIT 4 UNIT SC (08:10)
[2025-08-10] MEDS: BUMETANIDE 0.5 MG TABLET 1 MG PO (08:11)
[2025-08-10] MEDS: ENOXAPARIN SOD INJ 40 MG/0.4 ML SYRINGE SC (08:12)
[2025-08-10] MEDS: PANTOPRAZOLE 40 MG TABLET PO ×2 (08:12→20:21)
--- NOTE | 2025-08-10 10:23 | PD.RESPRO ---
Documentation for date of: 08/10/25 Subjective Subjective Interval history: Patient seen and assessed at bedside. No new complaints, denies chest pain, shortness of breath, palpitations, dizziness with ambulation. Blood pressure 148/83 this morning, systolics 120-148, noted lower systolics in the morning after given Bumex. Heart rate in upper 60s. Net -910 cc. Still has 1+ pitting edema bilaterally below knees. Potassium 3.3, magnesium 1.9, repleete accordingly. Creatinine continues to downtrend and 1.0 this morning as patient has cardiorenal syndrome. Glucose 305, increased to insulin degludec 22 units nightly with SSI + 6 units lispro TID. Lipid panel shows elevated triglycerides and total cholesterol, low HDL. TSH and T4 within normal limits. Continue Bumex 1 mg daily, consider starting on EFREN/ARB in setting of diabetes and HFmrEF. Exam Vital Signs Temp Pulse Resp BP Pulse Ox O2 Del Method O2 Flow Rate 96.9 F 69 20 148/85 H 99 Nasal Cannula 2 08/10/25 08:00 08/10/25 08:55 08/10/25 08:55 08/10/25 08:11 08/10/25 08:55 08/10/25 08:00 08/10/25 08:55 FiO2 40 08/08/25 04:00 Narrative Exam Physical Exam General: Awake and in no acute distress. Conversational and non-toxic appearing. HEENT: Normocephalic, atraumatic, mucous membranes moist. Heart: Regular rate and rhythm, normal S1 and S2, no murmurs appreciated. Lungs: Clear to auscultation with no wheezing or crackles. Abdomen: Soft, nondistended, nontender, positive bowel sounds. No guarding or rebound tenderness. Neurologic: Alert and oriented x3, no gross neurological deficit, and patient able to move all 4 extremities. Decreased sensation in lateral feet and left anterior ankle. Extremities: Mild pitting edema in above ankles. Skin: No rash or ecchymoses. Objective Labs 08/10/25 04:16 08/10/25 04:16 Labs: Laboratory Results - last 24 hr 08/09/25 08/10/25 12:07 04:16 WBC 9.4 RBC 3.42 L Hgb 11.4 L Hct 32.0 L MCV 94 MCH 33.3 MCHC 35.6 RDW Std Deviation 40.3 Plt Count 236 Neut % (Auto) 60 Lymph % (Auto) 20 Nye % (Auto) 14 H Eos % (Auto) 5 Baso % (Auto) 1 Neut # (Auto) 5.6 Lymph # (Auto) 1.9 Nye # (Auto) 1.3 H Eos # (Auto) 0.5 Baso # (Auto) 0.1 Immature Gran # (Auto) 0.04 H Absolute Nucleated RBC 0.00 Immature Gran % 0 Nucleated RBC % 0 Sodium 137 137 Potassium 3.3 L D 3.3 L Chloride 99 100 Carbon Dioxide 27.3 27.3 Anion Gap 11 10 BUN 31 H 31 H Creatinine 1.2 1.0 Estim Creat Clear Calc 35.4 L 42.5 L eGFR 47 L 58 L BUN/Creatinine Ratio 26 H 31 H Glucose 331 H D 305 H Calculated Osmolality 293 291 Calcium 8.8 8.5 Corrected Calcium 8.9 8.9 Phosphorus 3.1 3.5 Magnesium 1.9 Total Bilirubin 0.2 L AST 25 ALT 23 Alkaline Phosphatase 58 Total Protein 6.1 Albumin 3.9 3.5 Globulin 2.6 Albumin/Globulin Ratio 1.3 ABG Interpretation ABG results: 08/06/25 08/07/25 08/07/25 21:01 04:12 08:35 ABG pH 7.38 ABG pCO2 35 ABG pO2 66 L ABG HCO3 20 ABG O2 Saturation 93 ABG Base Excess -4 L VBG pH 7.36 7.32 L VBG pCO2 39 43 VBG pO2 35 49 VBG Base Excess -3 -4 L Quality Measures Quality Measures none Advance care planning discussed with:: patient Assessment & Plan Assessment Current Active Medications: Generic Name Dose Route Start Last Admin Trade Name Freq PRN Reason Stop Dose Admin Acetaminophen 650 mg 08/06/25 23:24 Acetaminophen 325 Mg Tablet PO 09/05/25 23:23 Q6H PRN Fever >100.4 Acetaminophen 650 mg 08/06/25 23:24 Acetaminophen 325 Mg Tablet PO 09/05/25 23:23 Q6H PRN PAIN SCALE 1-3 (mild Bumetanide 1 mg 08/09/25 09:00 08/10/25 08:11 Bumetanide 0.5 Mg Tablet PO 09/08/25 08:59 1 mg QDAY GEREMIAS Administration Cephalexin HCl 500 mg 08/09/25 12:00 08/10/25 06:03 Cephalexin 250 Mg Capsule PO 08/16/25 11:59 500 mg QID GEREMIAS Administration Dextrose 25 ml 08/06/25 23:24 Dextrose 50%-Water Inj 50 Ml Syringe IV 09/05/25 23:23 Q15MIN PRN BG 50-70 responsive npo pt Dextrose 50 ml 08/06/25 23:24 Dextrose 50%-Water Inj 50 Ml Syringe IV 09/05/25 23:23 Q15MIN PRN BG <50 OR BG <70 & pt unresponsive Enoxaparin Sodium 40 mg 08/07/25 09:00 08/10/25 08:12 Enoxaparin Sod Inj 40 Mg/0.4 Ml Syringe SC 08/21/25 08:59 40 mg QDAY GEREMIAS Administration Glucagon 1 mg 08/06/25 23:24 Glucagon Inj 1 Mg Vial IM Q15MIN PRN BG <70, and no IV access Insulin Degludec 25 unit 08/10/25 21:00 Insulin Degludec 5 Unit/0.05 Ml (Per 5 Units) AK 09/09/25 20:59 HS [facility] Insulin Human Lispro 0 unit 08/08/25 07:30 08/10/25 08:09 Insulin Lispro (Admelog) 1 Unit/0.01 Ml Unit SC 09/07/25 07:29 3 unit AC [facility] Administration Protocol Insulin Human Lispro 6 unit 08/10/25 12:00 Insulin Lispro (Admelog) 1 Unit/0.01 Ml Unit SC 09/09/25 11:59 TIDWM [facility] Ondansetron HCl 4 mg 08/06/25 23:24 08/09/25 20:42 Ondansetron Inj 2 Mg/Ml Inj 2 Ml IVP 09/05/25 23:23 4 mg Q6H PRN Administration NAUSEA OR VOMITING Protocol Pantoprazole Sodium 40 mg 08/09/25 21:00 08/10/25 08:12 Pantoprazole 40 Mg Tablet PO 09/08/25 20:59 40 mg BID GEREMIAS Administration Sennosides 1 tab 08/06/25 23:24 08/09/25 20:49 Senna Tablet PO 09/05/25 23:23 1 tab QDAY PRN Administration constipation Protocol Sodium Chloride 3 ml 08/07/25 07:44 Sodium Chloride Rt Bonita 0.9% 3 Ml Nebu INH 09/06/25 07:43 PRN PRN SOLN Plan Patient is a 75-year-old female with past medical history of hypertension uncontrolled type 2 diabetes (insulin-dependent), currently not on any home medications who presented on 08/06/2025 for generalized weakness, admitted for HHS. Cardiology consulted for new onset HFpEF and mild pulmonary hypertension noted on echo. #New onset HFpEF (50-55%, 07/2025) #Grade I diastolic diysfunction #Mild pulmonary HTN #Mild AV sclerosis #Hx of HTN S/p 4 L of fluid boluses in ED, and RR called 08/07 AM for hypoxemia. CXR showed prominent vascular congestion with extensive perihilar edema. Enlargement of cardiac contour with prominent CHF. S/p aggressive diuresis with Bumex overnight. BP 189/104 on admission -> 118/74. BNP 49 > 389, previusly 106 in 03/2025. Creatinine 1.4 -> 1.2 (at baseline). A1c 13.3. TSH 4.51, T4 0.96. Trig 286, total cholesterol 207, LDL 110, HDL 40. 08/07 TTE showed Normal left ventricular size and function. Approximate ejection fraction is 50-55%. Grade I diastolic dysfunction Normal right ventricular size and function. RVSP 33 mmHg with RAP 3. Mild pulmonary HTN. Mild aortic valve sclerosis without stenosis. Mild thickening of the mitral valve leaflets. Mild mitral and tricuspid regurgitation noted. No pericardial effusion. CXR 08/08/25 shows improvement in HF with less vascular congestion and perihilar edema. Mild prominence of left ventricle. Plan: - Bumex 1 mg daily. Later we can spiranolactoine and SGLT2 in setting of DM if BP and renal function permits. - Monitor renal function - Keep K >4 and Mg >2 - Strict ins and outs -Daily weights -Fluid restriction 1800 ml -Supplemental O2 as needed, wean as tolerated -Pt recommended to follow up with cardiology as outpt and to be compliant with meds. #Hypertriglyceridemia, moderate Lipid panel 08/09: Trig 286, total cholesterol 207, LDL 110, HDL 40. ASCVD score: unable to calculate as age is >75 however if disregarding age, recommend high intensity statin, 33.1% risk for cardiovascular event in the next 10 years - In setting of uncontrolled diabetes, HTN, and HLD, discussed with patient she is at significantly increased risk for stroke and [place]. Recommend starting on high statin but patient is not amendable to any more medications at this time. #HHS #DM type II, previously insulin dependent - A1c 13.3, non compliant with insulin #Elevated lactic acid, resolved #UTI, E. coli - on Rocephin #TOM, resolved Thank you for your consultation, please do not hesitate to reach out if you have any question or concern Patient plan of care was discussed with the attending physician, Dr. Dickson. Vianey Ríos, PGY-1 Attending Provider Attestation/Addendum I have personally seen and examined the patient separately on the above date of service and discussed the plan of care with the resident. I reviewed the resident Dr. Vianey Ríos consultation progress note and agree with the resident findings and plan in the note above and have also edited the documentation to reflect my findings and plan. Kian Dickson M.D. Interventional Cardiology
[2025-08-10] MEDS: INSULIN LISPRO (AdmeLOG) 1 UNIT/0.01 ML UNIT 6 UNIT SC ×2 (11:51→17:21)
--- NOTE | 2025-08-10 16:01 | PC.SS ---
SS informed by Dr. Luna that patient will need home oxygen. Discharge will be held until home oxygen can be provided to patient. SS informed Dr. Luna an Oxygen test and note will be needed to submit with referral. SS attempted to contact bedside RN to request assistance with oxygen test completion, bedside RN unavailable at this time. Rounding note: patient discharged home.
--- NOTE | 2025-08-10 16:09 | PC.NURSE ---
14:45: ambulated pt with her cane. started with pt at room air at 95% O2 sat. walked 25 ft and patient desaturated to 86-84.
--- NOTE | 2025-08-10 16:22 | ESDS_ITS ---
Planned Discharge Date 08/10/25 DS: Providers Provider Date of admission: 08/06/25 23:24 Primary care physician: Physician No Primary/Family Admitting Provider: Juanjo Brown MD Attending Provider on Admission: Waldemar Bush DO Consults: 08/06/25 23:29 Referral Registered Dietitian Routine Comment: 08/08/25 07:53 Consult to Cardiology Routine Comment: Consulting Provider: Kian Dickson Attending Provider on DC: Waldemar Bush DO Discharging Provider: Waldemar Bush DO DS: Diagnosis Problem List Completed Was Problem List Reviewed/Reconciled?: Yes Hospital Course Hospital Course Hospital course: Summary: Cee Mays 75F with pmhx significant for HTN and uncontrolled DM2, not on any medications who presented to [facility] ED 08/06 due to weakness, admitted for HHS and E coli UTI, course complicated by HFpEF (50-55%) exacerbation and TOM. Patient presented with weakness, dizzines, N/V with glucose 623 and lactic acid 2.8, peaked 4.6 with A1c 13.3. Reports non compliance with her medications and does not use any insulin or antihypertensives. Patient was treated with insulin and potassium repletion with improvement in glucose and mentation. Of note, on admission patient received 4L of fluids and was found to be in CHF exacerbation following fluids. Patient was treated with diuresis and will be discharged with supplemental O2. Cardiology was consulted for further HFpEF recommendations. Although patient denied urinary symptoms, patient was found to have E. coli UTI treated with rocephin, and plan to discharge with 4 additional days of Keflex. Patient was thoroughly educated regarding adherence to insulin and consequences of diabetes. [employer] Dining [employer] Cashier consulted and patient was also given diabetic education. On discharge patient is hemodynamically stable, vitals and labs reviewed and patient is feeling ready to go home. Imagin/9 TTE showed Normal left ventricular size and function. Approximate ejection fraction is 50-55%. Grade I diastolic dysfunction Normal right ventricular size and function. RVSP 33 mmHg with RAP 3. Mild pulmonary HTN. Mild aortic valve sclerosis without stenosis. Mild thickening of the mitral valve leaflets. Mild mitral and tricuspid regurgitation noted. No pericardial effusion. Discharge Recommendations: - Please take all medications as prescribed - START long acting insulin 30 units at night - START Keflex to take as written for 4 additional days - START bumex 0.5 mg daily for diuresis - You have been sent home with home O2 to use as needed - Continue all home medications except as above - Please follow up with your PCP within one week of discharge - Please follow up with floor care specialist within one week of discharge - If your symptoms worsen, please seek immediate medical attention and return to your nearest emergency room. - If you do not have a PCP, you may follow up at the [facility] at [address] [place] [address] [address], [facility] [address], Hospital Diagnoses: #HHS #Diabetes melitis type II #Elevated lactic acid #HFpEF (50-55%, 07/2025) #Mild pulmonary HTN #Mild AV sclerosis #UTI, E. coli #TOM #Hypertension Agnieszka Ríos DO Internal Medicine, PGY-1 Status at Discharge Cognitive/behavioral status at discharge: Stable Functional status at discharge: uses cane/walker Time Spent with Patient Time attestation: Total time spent providing and/or coordinating discharge services: Time spent: Greater than 30 minutes Exam Vital Signs Temp Pulse Resp BP Pulse Ox O2 Del Method O2 Flow Rate 97.1 F 88 21 H 113/73 97 Nasal Cannula 2 08/10/25 12:00 08/10/25 12:13 08/10/25 12:13 08/10/25 12:00 08/10/25 12:13 08/10/25 12:00 08/10/25 12:13 FiO2 40 08/08/25 04:00 Narrative Exam GENERAL: AOx3, no acute distress, sitting up comfortably HEENT: mucous membranes moist, bilateral sclera anicteric CARDIOVASCULAR: regular rate, regular rhythm, S1/S2 present, no murmurs appreciated PULMONARY: trace bilateral crackles at base, diminished breath sounds bilaterally L>R, no wheezing appreciated ABDOMINAL: soft, non-tender, non-distended, no rebound/guarding, bowel sounds present EXTREMITIES: no pitting edema SKIN: warm and dry, intact, no rashes NEURO: CN II-XII grossly intact, no focal deficits, alert, following commands Discharge Plan Plan Patient Disposition: HOME (Self Care) Patient condition on transfer: Stable and Benefits outweigh risks Care Plan Goals: You have been started on insulin, recommend taking 30 units once nightly, recommend following up with your primary care physician to go over recent hospitalization. Continue Keflex for 4 more days for treatment of UTI. Follow up with Primary care physician with labs within 3-5 days of discharge. If symptoms persist or worsen, return to the Emergency Department. Prescriptions/Referrals Prescriptions/Med Rec: New sennosides [Senna Lax] 8.6 mg Tablet 8.6 mg PO QDAY PRN (Reason: constipation) Qty: 20 0RF cephalexin 250 mg Capsule 500 mg PO QID 3 Days Qty: 24 0RF pantoprazole 40 mg Tablet,Delayed Release (Dr/Ec) 40 mg PO BID 30 Days Qty: 60 0RF bumetanide 0.5 mg Tablet 0.5 mg PO QDAY 30 Days Qty: 30 0RF insulin glargine [Lantus Solostar U-100 Insulin] 100 unit/mL (3 mL) insulin pen 30 unit subcut QPM Qty: 15 3RF (DME) blood-glucose meter [Accu-Chek Guide Glucose Meter] Misc See Rx Instructions .Route Qty: 1 1RF Rx Instructions: As directed (DME) Accu-Chek Guide test strips Strip See Rx Instructions .Route Qty: 100 2RF Rx Instructions: As directed (DME) lancets [Accu-Chek Fastclix Lancet Drum] Misc See Rx Instructions .Route Qty: 200 0RF Rx Instructions: As directed (DME) pen needle, diabetic [1st Tier Unifine Pentips] 32 gauge x 5/32 needle See Rx Instructions .Route Qty: 1200 1RF Rx Instructions: As directed Referrals: No Primary/Family,Physician [Primary Care Provider] Patient/Caregiver Discharge Instructions Print Language: Georgian Stand Alone Forms: Haylee Award Info., Patient Portal Info Letter Discharge Order Discharge Orders: Discharge (Routine); Ordered 08/10/25 Ordered By: Hilary Luna Quality Discharge Quality Measures VTE prophylaxis Attestestation MD Attestation I have discussed and was present for the essential components of the discharge history, physical examination, diagnosis, and discharge treatment plan with the resident. I agree with the patient's discharge care as documented by the resident and amended herein by me. Misael Bush, . The patient understood all discharge instructions, all questions were answered satisfactorily. The patient was instructed to return to the Emergency Department is symptoms worsened or persisted. Patient will need close follow-up with PCP for insulin adjustment and better glucose control, we will be discharging on the patient on long-acting insulin, 30 units nightly however I suspect she may need short acting her sliding scale insulin on top of this however this will be for her PCP to decide. We will also be discharging her with a short course of antibiotics for her urinary tract infection and Bumex 0.5 mg p.o. daily for fluid overload in setting of diastolic heart failure.. Please see resident noted above for additional details, the patient was stable, afebrile, tolerating p.o. intake at time of discharge home. Patient was stable, afebrile, tolerating p.o. intake and understood all discharge instructions. Although this document has been carefully reviewed, there may still be some phonetic and other typographical errors. These errors are purely grammatical due to imperfections in the software program and should not be construed in any way to compromise the substance of the patient's medical care during this visit. Time Spent on discharge: 33 minutes
--- NOTE | 2025-08-10 18:29 | PC.NURSE ---
18:15, pt on room air at rest 93% O2 Saturation, room air with exercise 86-83% O2 Saturation. at recovery pt on 2L NC, pt oxygen saturation at 97%.
--- NOTE | 2025-08-10 18:44 | PC.NURSE ---
pt room air at rest 93% O2, pt room air with ambulation/exercise at 83-86% O2, pt at recover on 2L O2 is 96%
[2025-08-10] MEDS: LABETALOL INJ 5 MG/ML VIAL 20 ML 10 MG IVP (20:18)
[2025-08-10] MEDS: INSULIN DEGLUDEC 5 UNIT/0.05 ML (PER 5 UNITS) 25 UNIT SC (20:21)
== END 2025-08-10 22:17 | disposition home or self-care (01) | DRG 638 ==
LOC: SERX 21:51 → SERHOLD 23:41 → S2NX 08-07 00:24
PROVIDERS: Student in an Organized Health Care Education/Training Program; Admitting Provider Internal Medicine; Emergency Provider Emergency Medicine; Visit Provider Student in an Organized Health Care Education/Training Program
DX: E11.65 Type 2 diabetes mellitus with hyperglycemia (principal); I50.30 Unspecified diastolic (congestive) heart failure; N17.9 Acute kidney failure, unspecified; N39.0 Urinary tract infection, site not specified; E86.0 Dehydration; B96.20 Unspecified Escherichia coli [E. coli] as the cause of diseases classified elsewhere; I11.0 Hypertensive heart disease with heart failure; I27.20 Pulmonary hypertension, unspecified; R29.6 Repeated falls; R09.02 Hypoxemia; Z66 Do not resuscitate; Z79.4 Long term (current) use of insulin; Z79.899 Other long term (current) drug therapy; E78.1 Pure hyperglyceridemia; Z91.199 Patient's noncompliance with other medical treatment and regimen due to unspecified reason; T38.3X6A Underdosing of insulin and oral hypoglycemic [antidiabetic] drugs, initial encounter; T46.5X6A Underdosing of other antihypertensive drugs, initial encounter; B96.89 Other specified bacterial agents as the cause of diseases classified elsewhere
CPT/HCPCS: 36415; 36600; 71045; 80053; 80061; 80069; 80307; 80320; 81001; 82010; 82140; 82150; 82248; 82550; 82803; 83036; 83605; 83690; 83735; 83880; 84100; 84145; 84439; 84443; 84484; 85025; 85652; 86140; 87040; 87077; 87086; 87186; 87502; 87811; 93005; 93306; 94762; 96361; 96365; 96366; 96375; 96376; 99285; J0696; J1650; J1815; J2405; J2470; J2919; J3475; J3480; J3490; J7030; J7050; J7120; J7999; A9270; G0480; J1920